=== PATIENT | male | born 1985 | race Caucasian/White ===

== ENCOUNTER 2024-05-31 20:18 | Emergency (ER) | payer MEDICAID, SELFPAY ==
[2024-05-31] VITALS (8 sets, daily range): BP systolic 108–162; BP diastolic 64–105; PULSE 73–98; RESP 16; TEMP 37.3; O2SAT 89–95
--- NOTE | 2024-05-31 20:44 | ED.GENADUL_ITS ---
Discharge Plan Disposition Patient Disposition: Home Condition: Stable Discharge Details Clinical Impression: Nausea & vomiting, Alcohol abuse Primary Care Provider: None,None ED Provider: Edouard Ervin Home Meds and New Rx's Prescriptions: New ondansetron 4 mg tablet,disintegrating 4 mg PO Q8H PRN (Reason: nausea and vomiting) Qty: 30 0RF Discharge Instructions Additional Instructions: Follow-up with your primary care provider within 1 to 2 weeks Return limit alcohol to at most 2 drinks per day If you feel more ill or have new symptoms such as high fevers or persistent vomiting despite the medication prescribed return to the emergency department HPI General Mode of arrival: ambulatory . Date/Time Provider Initiated Documentation: 05/31/24 20:25 . Limitations to Documentation: no limitations . Information obtained by: patient . History of Present Illness 39 year old M presents to the emergency department with the chief complaint of n/v, described as moderate, Patient started experiencing this hour(s) (1) and it has been constant. No relieving factors improve symptom(s), No exacerbating factors reported . Patient notes denies chest pain and shortness of breath. Patient did receive the following treatments prior to arrival, none Related Data Home Medications ?Medication ?Instructions ?Recorded ?Confirmed ondansetron 4 mg disintegrating 4 mg PO Q8H PRN nausea and 05/31/24 tablet vomiting #30 tabs Previous Rx's ?Medication ?Instructions ?Recorded ondansetron 4 mg disintegrating 4 mg PO Q8H PRN nausea and 05/31/24 tablet vomiting #30 tabs Allergies Allergy/AdvReac Type Severity Reaction Status Date / Time No Known Allergies Allergy Unverified 05/31/24 21:05 General Stated Complaint: Nausea/Vomit/Diar SIDRA: 3 Review of Systems All systems reviewed & are unremarkable except as noted in HPI and below Constitutional Constitutional: Denies chills, Denies fever(s) and Denies weakness Cardiovascular Cardiovascular: Denies chest pain and Denies dyspnea Respiratory Respiratory: Denies cough and Denies dyspnea Gastrointestinal Gastrointestinal: Denies abdominal pain and Reports vomiting Musculoskeletal Musculoskeletal: Denies joint swelling Neurologic Neurologic: Denies weakness Exam Const General: no acute distress Orientation: alert HENMT Head: normal to inspection Ears: external ears normal General nose exam: external nose normal Mouth: moist mucous membranes Eyes General: appearance normal, both eyes and all related structures Neck Neck: normal visual inspection Resp Effort & Inspection: normal respiratory effort and able to speak in complete sentences Cardio Rate: regular rate GI Palpation: soft and nontender Skin General skin exam: no rashes or lesions noted Neuro General: patient alert and patient oriented x3 Extrem General: normal to inspection Psych Mental Status: mental status grossly normal Course Vital Signs Vital signs: Vital Signs Temperature 37.3 C 05/31/24 20:22 Pulse 98 H 05/31/24 20:22 Respiratory Rate 16 05/31/24 20:22 Blood Pressure 162/105 H 05/31/24 20:22 Pulse Oximetry 95 05/31/24 20:22 Temperature 37.3 C 05/31/24 20:22 Pulse 98 H 05/31/24 20:22 Respiratory Rate 16 05/31/24 20:22 Blood Pressure 162/105 H 05/31/24 20:22 Pulse Oximetry 95 05/31/24 20:22 Pain Level 0 05/31/24 20:22 Comment 2nd BP taken 05/31/24 20:22 Medical Decision Making 39-year-old male who denies any chronic medical problems, does state he drinks alcohol daily comes in stating that he recently just moved into a new house and states a and drink Water and started vomiting. He denies any abdominal pain, chest pain, shortness of breath. He denies any drug use. He is currently conscious and alert x 4. He does have a smell of alcohol but is clinically sober. He has no motor or sensation deficits on exam, soft nontender abdomen. Stable vital signs. Suspect this could be food or water related illness or possibly from alcohol abuse. he denies si/hi. Will check a CBC and CMP and treat symptoms with fluids and Zofran and reassess. Labs unremarkable other than LFTs elevated to 300s but he does state he drinks alcohol daily suspect is from this. He is tolerating p.o. and still clinically sober, he is stable for discharge and will follow-up with his PCP and return precautions given. Has no abdominal pain or tenderness currently. Differential Diagnosis Differential Diagnosis: Food illness, electrolyte abnormality Lab Data Lab results reviewed: Yes I reviewed the patient's lab results. Quality:SDOH Health Related Social Needs: No Data to Display PFSH All Active Problems (Updated 05/31/24 @ 21:29 by Edouard Ervin MD) Alcohol abuse (Chronic) Nausea & vomiting (Acute) Social History Smoking/Tobacco Use Status: Current every day Tobacco Type: smokeless tobacco Smoking risk assessment performed?: Yes Alcohol Intake: current Alcohol Intake frequency: 3 or more drinks per day Substance use type: does not use Do you feel safe at home: Yes Do you feel safe in your relationship?: Yes
[2024-05-31] MEDS: Ondansetron 4 MG/2 ML VIAL IVP (20:50)
[2024-05-31 21:03] LABS: Abs Immature Grans 0.01 10^3/uL (0.0-0.06); Absolute Basophil Count 0.05 10^3/uL (0.0-0.2); Absolute Eosinophil Count 0.08 10^3/uL (0.0-0.7); Absolute Lymphocyte Count 1.71 10^3/uL (1.2-3.4); Absolute Monocyte Count 0.58 10^3/uL (0.1-0.8); Absolute Neutrophil Count 2.22 10^3/uL (1.2-6.7); Basophils % 1.1 %; Eosinophils % 1.7 %; HCT 41.1 % (40.0-50.0); HGB 13.6 g/dL (13.5-17.5); Immature Grans % 0.2 %; Lymphocytes % 36.8 %; MCH 34.2 pg (27.0-33.0); MCHC 33.1 % (32.0-36.0); MCV 103 fL (80-95); MPV 8.6 fL (8.0-11.0); Monocytes % 12.5 %; Neutrophils % 47.7 %; Platelet Count 195 10^3/uL (130-400); RBC 3.98 10^6/uL (4.36-5.78); RDW 13.5 % (11.8-14.1); RDW-SD 52.8 fL; WBC 4.65 10^3/uL (4.4-10.8)
[2024-05-31 21:18] LABS: ALT 233 U/L (16-63); AST 310 U/L (15-37); Albumin 4.3 g/dL (3.4-5.0); Alkaline Phosphatase 46 U/L (46-116); Anion Gap 9.7 mmol/L (3-11); BUN 7 mg/dL (7-18); Bilirubin, Total 0.37 mg/dL (0.2-1.0); CO2 32.3 mmol/L (21.0-32.0); CREATININE 0.9 mg/dL (0.70-1.30); Calcium 8.4 mg/dL (8.5-10.1); Chloride 102 mmol/L (98-107); Estimated GFR 110.73 (mL/min/1.73m2); Glucose 90 mg/dL (74-106); Potassium 4.1 mmol/L (3.5-5.1); Sodium 144 mmol/L (136-145); Total Protein 7.9 g/dL (6.4-8.2)
== END 2024-05-31 21:44 | disposition home or self-care (01) ==
LOC: ER 21:59
PROVIDERS: Emergency Provider Emergency Medicine
DX: R11.2 Nausea with vomiting, unspecified (principal); F10.10 Alcohol abuse, uncomplicated
CPT/HCPCS: 80053; 96374; 99284; 85025; 99283; J2405

== ENCOUNTER 2024-11-23 09:15 | Inpatient (IN) | payer MEDICAID, SELFPAY ==
[2024-11-23] VITALS (32 sets, daily range): BP systolic 127–174; BP diastolic 63–122; PULSE 67–107; RESP 12–36; TEMP 36.6–37.1; O2SAT 91–100
--- NOTE | 2024-11-23 09:48 | ED.GENADUL_ITS ---
Discharge Plan Discharge Details Chief Complaint: Abd Prob Admit Date/Time: 11/23/24 13:15 Admit Provider: Israel Kong Attending Provider: Israel Kong Primary Care Provider: Unknown,Unknown ED Provider: Jenise Carlos General Mode of arrival: ambulatory . Date/Time Provider Initiated Documentation: 11/23/24 09:21 . Limitations to Documentation: no limitations . Information obtained by: patient, RN notes reviewed and old records reviewed . HPI Narrative: 39-year-old male presents to the ER with a chief complaint of left upper quadrant abdominal pain which radiates around to the back. He reports started yesterday while at work. Associated with nausea vomiting. He reports he does have a history of pancreatitis but is unsure where he was diagnosed with this. He denies any diarrhea denies any fever or chills. No history of abdominal surgeries. He does endorse alcohol. Denies any drugs. He is currently curled up in a ball. Does appear uncomfortable. Related Data Home Medications ?Medication ?Instructions ?Recorded ?Confirmed buspirone 10 mg tablet 10 mg PO TID 11/17/24 11/23/24 clonidine HCl 0.1 mg tablet 0.1 mg PO QHS PRN 11/17/24 11/23/24 diazepam 10 mg tablet (Valium) 10 mg PO ONCE PRN premedication #1 11/17/24 11/17/24 tab escitalopram oxalate 20 mg tablet 20 mg PO DAILY 11/17/24 11/23/24 (Lexapro) folic acid 1 mg tablet 1 mg PO DAILY 11/17/24 11/23/24 mecobalamin (vitamin B12) 1,000 1,000 mcg PO DAILY 11/17/24 11/23/24 mcg chewable tablet (B12 Active) mirtazapine 15 mg tablet (Remeron) 7.5 mg PO DAILY 11/17/24 11/23/24 omeprazole 20 mg capsule,delayed 20 mg PO DAILY 11/17/24 11/23/24 release propranolol 10 mg tablet 10 mg PO DAILY PRN 11/17/24 11/23/24 sucralfate 1 gram tablet 1 g PO BID 11/17/24 11/23/24 Previous Rx's ?Medication ?Instructions ?Recorded diazepam 10 mg tablet (Valium) 10 mg PO ONCE PRN premedication #1 11/17/24 tab Allergies Allergy/AdvReac Type Severity Reaction Status Date / Time No Known Allergies Allergy Unverified 11/23/24 09:28 General Stated Complaint: Abd Prob SIDRA: 3 Review of Systems All systems reviewed & are unremarkable except as noted in HPI and below Gastrointestinal Gastrointestinal: Reports abdominal pain, Reports nausea and Reports vomiting Exam Narrative Exam Narrative: Constitutional: Alert and oriented x3. Appears stated age. Thin body habitus. Head: Normocephalic, no trauma. Eyes: Pupils PERRL, Red reflex noted, EOM's intact. Eyelids symmetrical without lesions, discharge, or swelling. ENT: Bilateral TM's WNL, External ear normal to inspection, no mastoid TTP, swelling, or erythema, Nasal turbinates WNL, no nasal discharge. Normal dentition, Posterior pharynx WNL, no exudate. Chest: RRR, Normal S1, S2, distal pulses intact. Resp: Lungs clear to auscultation bilaterally, no wheezes, rales, or rhonchi. Abdomen: Soft, non-distended, generalized tenderness with palpation. No masses. Positive guarding. Musculoskeletal: Normal gait, Moves all 4 extremities without difficulty. Skin: No suspicious rashes or lesions. Capillary refill less than 2 sec. Neurologic: Cranial nerves II-XII intact. Alert and oriented x 3. Motor: No deficits noted. Sensory: Intact bilaterally all 4 extremities. Hematologic/Lymphatic: No ecchymosis, no lymphadenopathy. Course Vital Signs Vital signs: Vital Signs Temperature 36.6 C 11/23/24 09:30 Pulse 100 H 11/23/24 09:30 Respiratory Rate 24 11/23/24 09:30 Blood Pressure 127/74 11/23/24 09:30 Pulse Oximetry 99 11/23/24 09:30 Temperature 36.6 C 11/23/24 09:30 Temperature Source Oral 11/23/24 09:30 Pulse 100 H 11/23/24 09:30 Respiratory Rate 24 11/23/24 09:30 Blood Pressure 127/74 11/23/24 09:30 Pulse Oximetry 99 11/23/24 09:30 Oxygen Delivery Method Room Air 11/23/24 09:30 Oxygen Flow Rate 0 11/23/24 09:30 Pain Level 9 11/23/24 09:30 Medical Decision Making 39-year-old male presents to the ER with a chief complaint of left upper quadrant abdominal pain which radiates around to the back. He reports started yesterday while at work. Associated with nausea vomiting. He reports he does have a history of pancreatitis but is unsure where he was diagnosed with this. He denies any diarrhea denies any fever or chills. No history of abdominal surgeries. He does endorse alcohol. Denies any drugs. He is currently curled up in a ball. Does appear uncomfortable. Workup ordered including CBC CMP lipase urinalysis UDS and ethyl alcohol level. 500 cc normal saline bolus, Zofran and 0.5 of hydromorphone ordered. CBC shows leukocytosis with white blood cell count 19.03, platelets are 42 absolute neutrophils 16.44, sodium potassium within normal limits. However potassium is 5.0 which is on the high side. Glucose 123, magnesium 1.6 AST elevated at 105 ALT 141. Lipase is greater than 3000. Ethyl alcohol 203.6. CT shows findings consistent with acute pancreatitis. Urinalysis is pending at this time. Will reevaluate patient and recommend admission for acute pancreatitis intractable pain and vomiting. 11:00: I did recommend admission with patient. He is still complaining of some pain however he appears more comfortable. He is requesting water able okay for ice chips for p.o. challenge and additional 1.5 of hydromorphone ordered. 500 cc bolus is infusing without difficulty. 1140: Patient is agreeable to admission, hospitalist paged. 1155: Spoke with Dr. Kong who agrees to accept patient for admission for acute pancreatitis. I did discuss patient case in details with him. He will have the patient evaluated here in the emergency department. At this time due to bed capacity patient may be boarding in the emergency department at this time. assistant tennis coach paged, patient declines pain with monomer recovery operator at this time. Informed by community health nurse staff that patient is complaining of recurrence of pain. Hospitalist here in the department for evaluation. At the time of this dictation patient is boarding in the emergency department has been accepted by the hospitalist awaiting bed placement for admission for acute pancreatitis. BODY SHOP TECHNICIAN hydromorphone 0.5 mg every 2 hours as needed for moderate to severe pain was ordered and as needed Zofran order. At the time of this dictation patient hemodynamically stable, heart rate 82 to 96% on room air blood pressure 132/73. Respiration rate 19. This text was generated using [employer]pexation system, please disregard any oddities of phrase or misspellings. Medical Records Medical records reviewed: Yes I reviewed the patient's medical records. Imaging Data Radiologic Study: Imaging: CT Scan Radiologist's impression: CONTRAST MATERIAL: Intravenous: Omnipaque 350 Contrast volume:75 mL Oral: No COMPARISON: No exams were available for comparison FINDINGS: ABDOMEN: Lung Bases: There is mild diffuse thickening of the wall of the distal esophagus which can be seen with esophagitis. Liver: There is diffuse decreased attenuation of the liver consistent with fatty infiltration. No measurable mass. Hepatomegaly. Portal, Superior Mesenteric, and Splenic Veins: Unremarkable. Gallbladder and Biliary Tract: No radiodense calculus or dilation. Pancreas: There is mild heterogeneity and enlargement of the pancreas with inflammatory stranding seen around the pancreas. No focal fluid collection is seen to suggest an abscess. The findings are suspicious for acute pancreatitis. Spleen: Normal. Adrenals: No masses seen. Kidneys: Normal size, contour and axis. There is a 2 mm nonobstructing stone in the lower pole of the right kidney. No masses seen. Abdominal Aorta: Abdominal portion non-dilated. Minimal atherosclerotic calcification. Bowel: There is bowel wall thickening seen in the mid transverse colons orozco ggestive of colitis. This is likely secondary to the adjacent inflammatory process in the upper abdomen. There is no evidence of bowel obstruction. The remainder of the bowel is unremarkable. Appendix is unremarkable. Peritoneal Cavity: There is a small amount of pelvic ascites. No free air. Lymph Nodes: Within normal limits. Bones: Within normal limits for the patient's age. Soft Tissues: Unremarkable. PELVIS: Bladder: Symmetric distention, no gross wall thickening. Reproductive Organs: Unremarkable as visualized. Lymph Nodes: Within normal limits. Bones: Within normal limits for the patient's age. IMPRESSION: 1. Findings consistent with acute pancreatitis. No focal fluid collection is seen to suggest an abscess. 2. No cholelithiasis or biliary ductal dilatation. 3. Small amount of pelvic ascites. 4. Bowel wall thickening in the mid transverse colon suggestive of colitis. This may be secondary to the inflammatory process in the upper abdomen. No evidence of bowel obstruction. 5. Mild diffuse thickening of the wall of the distal esophagus which may represent an infectious or inflammatory esophagitis. 6. Diffuse decreased attenuation of the liver consistent with fatty infiltration. Hepatomegal Lab Data Lab results reviewed: Yes I reviewed the patient's lab results. Labs: Laboratory Tests Range/Units 11/23/24 11/23/24 11/23/24 09:55 09:55 09:55 WBC (4.4-10.8) 10^3/uL 19.03 H RBC (4.36-5.78) 10^6/uL 3.89 L Hgb (13.5-17.5) g/dL 13.7 Hct (40.0-50.0) % 40.0 MCV (80-95) fL 103 H MCH (27.0-33.0) pg 35.2 H MCHC (32.0-36.0) % 34.3 RDW (11.8-14.1) % 13.1 Plt Count (130-400) 10^3/uL 482 H MPV (8.0-11.0) fL 8.4 Immature Gran % % 0.5 Neutrophils % % 86.4 Lymphocytes % % 7.9 Monocytes % % 4.5 Eosinophils % % 0.2 Basophils % % 0.5 Nucleated RBC % (0.0-0.3) % 0.0 Absolute Neutrophils (1.2-6.7) 10^3/uL 16.44 H Absolute Lymphocytes (1.2-3.4) 10^3/uL 1.50 Absolute Monocytes (0.1-0.8) 10^3/uL 0.86 H Absolute Eosinophils (0.0-0.7) 10^3/uL 0.04 Absolute Basophils (0.0-0.2) 10^3/uL 0.10 Sodium (136-145) mmol/L 138 Potassium (3.5-5.1) mmol/L 5.0 Chloride (98-107) mmol/L 98 Carbon Dioxide (21.0-32.0) mmol/L 28.2 Anion Gap (3-11) mmol/L 11.8 H BUN (7-18) mg/dL 11 Creatinine (0.70-1.30) mg/dL 1.1 Est GFR (CKD-EPI 2020) (mL/min/1.73m2) 87.03 Glucose (74-106) mg/dL 123 H Calcium (8.5-10.1) mg/dL 9.5 Magnesium (1.8-2.4) mg/dL 1.6 L Total Bilirubin (0.2-1.0) mg/dL 0.46 AST (15-37) U/L 105 H ALT (16-63) U/L 141 H Alkaline Phosphatase (46-116) U/L 47 Total Protein (6.4-8.2) g/dL 8.2 Albumin (3.4-5.0) g/dL 4.3 Lipase Cancelled > 3000 H Urine Color (Yellow) Urine Clarity (Clear) Urine pH (5-8) Ur Specific [place] (1.005-1.025) Urine Protein (Neg-Trace) mg/dL Urine Ketones (Negative) mg/dL Urine Blood (Negative) Urine Nitrite (Negative) Urine Bilirubin (Negative) Urine Urobilinogen (Up to 0.2) mg/dL Ur Leukocyte Esterase (Negative) Urine RBC (0-2) HPF Urine WBC (0-5) HPF Ur Epithelial Cells (Negative) HPF Urine Crystals (Negative) HPF Urine Bacteria (Negative) HPF Urine Casts (Negative) LPF Urine Mucus (Negative) Ur Culture Indicated? Urine Glucose (Negative) mg/dL Urine Opiates Screen (Negative) Urine Methadone Screen (Negative) Ur Barbiturates Screen (Negative) Ur Tricyclics Screen (Negative) Ur Amphetamines Screen (Negative) U Benzodiazepines Scrn (Negative) Urine Cocaine Screen (Negative) Ur THC Screen (Negative) Ethyl Alcohol Cancelled 203.6 H Range/Units 11/23/24 11:20 WBC (4.4-10.8) 10^3/uL RBC (4.36-5.78) 10^6/uL Hgb (13.5-17.5) g/dL Hct (40.0-50.0) % MCV (80-95) fL MCH (27.0-33.0) pg MCHC (32.0-36.0) % RDW (11.8-14.1) % Plt Count (130-400) 10^3/uL MPV (8.0-11.0) fL Immature Gran % % Neutrophils % % Lymphocytes % % Monocytes % % Eosinophils % % Basophils % % Nucleated RBC % (0.0-0.3) % Absolute Neutrophils (1.2-6.7) 10^3/uL Absolute Lymphocytes (1.2-3.4) 10^3/uL Absolute Monocytes (0.1-0.8) 10^3/uL Absolute Eosinophils (0.0-0.7) 10^3/uL Absolute Basophils (0.0-0.2) 10^3/uL Sodium (136-145) mmol/L Potassium (3.5-5.1) mmol/L Chloride (98-107) mmol/L Carbon Dioxide (21.0-32.0) mmol/L Anion Gap (3-11) mmol/L BUN (7-18) mg/dL Creatinine (0.70-1.30) mg/dL Est GFR (CKD-EPI 2020) (mL/min/1.73m2) Glucose (74-106) mg/dL Calcium (8.5-10.1) mg/dL Magnesium (1.8-2.4) mg/dL Total Bilirubin (0.2-1.0) mg/dL AST (15-37) U/L ALT (16-63) U/L Alkaline Phosphatase (46-116) U/L Total Protein (6.4-8.2) g/dL Albumin (3.4-5.0) g/dL Lipase Urine Color (Yellow) Yellow Urine Clarity (Clear) Clear Urine pH (5-8) 5.5 Ur Specific [place] (1.005-1.025) 1.020 Urine Protein (Neg-Trace) mg/dL 100 H Urine Ketones (Negative) mg/dL 15 H Urine Blood (Negative) Trace-intact H Urine Nitrite (Negative) Negative Urine Bilirubin (Negative) Negative Urine Urobilinogen (Up to 0.2) mg/dL 0.2 Ur Leukocyte Esterase (Negative) Negative Urine RBC (0-2) HPF 0-2 Urine WBC (0-5) HPF Negative Ur Epithelial Cells (Negative) HPF Rare Urine Crystals (Negative) HPF Negative Urine Bacteria (Negative) HPF Negative Urine Casts (Negative) LPF 3-5 Fine Granular Urine Mucus (Negative) Trace Ur Culture Indicated? No Urine Glucose (Negative) mg/dL Negative Urine Opiates Screen (Negative) Positive A Urine Methadone Screen (Negative) Negative Ur Barbiturates Screen (Negative) Negative Ur Tricyclics Screen (Negative) Negative Ur Amphetamines Screen (Negative) Negative U Benzodiazepines Scrn (Negative) Negative Urine Cocaine Screen (Negative) Negative Ur THC Screen (Negative) Negative Ethyl Alcohol Quality:[facility] Health Related Social Needs: No Data to Display [facility] Social History Smoking/Tobacco Use Status: Current every day Tobacco Type: smokeless tobacco Smoking risk assessment performed?: Yes Alcohol Intake: current Alcohol Intake frequency: 3 or more drinks per day Substance use type: does not use Do you feel safe at home: Yes Do you feel safe in your relationship?: Yes PAWSS Have you Been Recently Intoxicated or Drunk Within the Last 30 days?: No Have you Ever Experienced Previous Episodes of Alcohol Withdrawal?: No Have you ever Experienced Withdrawal Seizures?: No Have you ever Experienced Delirium Tremens(DT)s?: No Have you ever undergone Alcohol Rehabilitation Treatment (i.e, inpt ot outpatient treatment programs)?: No Have you ever Experienced Blackouts?: No Have you ever Combined Alcohol with other Downers within the last 90 days?: No Have you ever Combined Alcohol with any other Substance of Abuse during the last 90 days?: No Positive Blood Alcohol level on Presentation? [PCS.BAL]: No Result: 0
[2024-11-23 10:02] LABS: Absolute Eosinophil Count 0.04 10^3/uL (0.0-0.7); Absolute Monocyte Count 0.86 10^3/uL (0.1-0.8); Absolute Neutrophil Count 16.44 10^3/uL (1.2-6.7); Basophils % 0.5 %; Eosinophils % 0.2 %; HGB 13.7 g/dL (13.5-17.5); Immature Grans % 0.5 %; Lymphocytes % 7.9 %; MCH 35.2 pg (27.0-33.0); MCHC 34.3 % (32.0-36.0); MCV 103 fL (80-95); MPV 8.4 fL (8.0-11.0); Monocytes % 4.5 %; Neutrophils % 86.4 %; Platelet Count 482 10^3/uL (130-400); RBC 3.89 10^6/uL (4.36-5.78); RDW 13.1 % (11.8-14.1); WBC 19.03 10^3/uL (4.4-10.8)
[2024-11-23] MEDS: HYDROmorphone 2 MG/ML SYR 0.5 MG IVP ×5 (10:05→22:55)
[2024-11-23] MEDS: Normal Saline 500 ML IV (10:06)
[2024-11-23] MEDS: Ondansetron 4 MG/2 ML VIAL IVP ×2 (10:06→16:56)
[2024-11-23 10:18] LABS: ALT 141 U/L (16-63); AST 105 U/L (15-37); Albumin 4.3 g/dL (3.4-5.0); Alkaline Phosphatase 47 U/L (46-116); Anion Gap 11.8 mmol/L (3-11); BUN 11 mg/dL (7-18); Bilirubin, Total 0.46 mg/dL (0.2-1.0); CO2 28.2 mmol/L (21.0-32.0); CREATININE 1.1 mg/dL (0.70-1.30); Calcium 9.5 mg/dL (8.5-10.1); Chloride 98 mmol/L (98-107); ETHANOL BLOOD 203.6 mg/dL (<10); Estimated GFR 87.03 (mL/min/1.73m2); Glucose 123 mg/dL (74-106); Magnesium 1.6 mg/dL (1.8-2.4); Sodium 138 mmol/L (136-145); Total Protein 8.2 g/dL (6.4-8.2)
[2024-11-23] MEDS: Famotidine 20 MG/2 ML VIAL IVP (10:25)
[2024-11-23] MEDS: Omnipaque 350 MG/ML 100 ML BTL IJ (10:29)
[2024-11-23] MEDS: Normal Saline - Diluent 50 ML VIAL IJ (10:31)
[2024-11-23 10:36] LABS: Lipase > 3000 U/L (<78)
--- NOTE | 2024-11-23 10:39 | DI.CT_ITS ---
Exam(s) CT ABDOMEN PELVIS W EXAM: CT ABDOMEN PELVIS W CLINICAL HISTORY: LUQ abd pain, hx of pancreatitis TECHNIQUE: Imaging Protocol: Axial computed tomography images with coronal and sagittal reformatted images were created and reviewed. CONTRAST MATERIAL: Intravenous: Omnipaque 350 Contrast volume:75 mL Oral: No COMPARISON: No exams were available for comparison FINDINGS: ABDOMEN: Lung Bases: There is mild diffuse thickening of the wall of the distal esophagus which can be seen wi th esophagitis. Liver: There is diffuse decreased attenuation of the liver consistent with fatty infiltration. No me asurable mass. Hepatomegaly. Portal, Superior Mesenteric, and Splenic Veins: Unremarkable. Gallbladder and Biliary Tract: No radiodense calculus or dilation. Pancreas: There is mild heterogeneity and enlargement of the pancreas with inflammatory stranding see n around the pancreas. No focal fluid collection is seen to suggest an abscess. The findings are orozco spicious for acute pancreatitis. Spleen: Normal. Adrenals: No masses seen. Kidneys: Normal size, contour and axis. There is a 2 mm nonobstructing stone in the lower pole of the right kidney. No masses seen. Abdominal Aorta: Abdominal portion non-dilated. Minimal atherosclerotic calcification. Bowel: There is bowel wall thickening seen in the mid transverse colons suggestive of colitis. This is likely secondary to the adjacent inflammatory process in the upper abdomen. There is no evidence of bowel obstruction. The remainder of the bowel is unremarkable. Appendix is unremarkable. Peritoneal Cavity: There is a small amount of pelvic ascites. No free air. Lymph Nodes: Within normal limits. Bones: Within normal limits for the patient's age. Soft Tissues: Unremarkable. PELVIS: Bladder: Symmetric distention, no gross wall thickening. Reproductive Organs: Unremarkable as visualized. Lymph Nodes: Within normal limits. Bones: Within normal limits for the patient's age. IMPRESSION: 1. Findings consistent with acute pancreatitis. No focal fluid collection is seen to suggest an absc ess. 2. No cholelithiasis or biliary ductal dilatation. 3. Small amount of pelvic ascites. 4. Bowel wall thickening in the mid transverse colon suggestive of colitis. This may be secondary to the inflammatory process in the upper abdomen. No evidence of bowel obstruction. 5. Mild diffuse thickening of the wall of the distal esophagus which may represent an infectious or i nflammatory esophagitis. 6. Diffuse decreased attenuation of the liver consistent with fatty infiltration. Hepatomegaly. RADIATION DOSE DELIVERED: 258.94mGy.cm Total DLP DATA REPOSITORY: All CT scans at this facility are submitted to the National Radiology Data Registry (NRDR) Dose Index Registry (DIR) with the [employer] (A[employer]). RADIATION OPTIMIZATION: All CT scans at this facility use at least one of these dose optimization te chniques: automated exposure control; mA and/or kV adjustment per patient size (includes targeted exa ms where dose is matched to clinical indication); or iterative reconstruction.
[2024-11-23 11:25] LABS: Bilirubin Negative (Negative); Blood Trace-intact (Negative); Clarity Clear (Clear); Glucose Negative (Negative); Ketones 15 mg/dL (Negative); Leukocyte Esterase Negative (Negative); Nitrite Negative (Negative); Urobilinogen 0.2 mg/dL (Up to 0.2); pH 5.5 (5-8)
[2024-11-23 11:34] LABS: Bacteria Negative HPF (Negative); C & S Indicated? No; Casts 3-5 Fine Granular LPF (Negative); Crystals Negative HPF (Negative); Epithelial Cells Rare HPF (Negative); Mucus Trace (Negative); RBC 0-2 HPF (0-2); WBC Negative HPF (0-5)
[2024-11-23 11:36] LABS: *AMPHETAMINES SCREEN URINE Negative (Negative); *BARBITURATES SCREEN URINE Negative (Negative); *BENZODIAZEPINES SCREEN URINE Negative (Negative); Cannabinoids THC Negative (Negative); Cocaine Screen,Urine Negative (Negative); METHADONE URINE SCREEN Negative (Negative); OPIATES URINE SCREEN Positive (Negative); Tricyclic Antidepressants Negative (Negative)
[2024-11-23] MEDS: MAGNESIUM SULFATE 1 GM/100 ML BAG IV_INF (13:34)
[2024-11-23] MEDS: Enoxaparin 40 MG/0.4 ML SYR SC (13:34)
[2024-11-23] MEDS: MAGNESIUM SULFATE 8.12 MEQ, MULTIVITAMIN 10 ML, THIAMINE 100 MG, FOLIC ACID 1 MG in Nor... 168.867 MG IV (15:58)
[2024-11-23] MEDS: Normal Saline 1,000 ML 250 ML IV (16:27)
--- NOTE | 2024-11-23 16:56 | W.PM.HP.N ---
Date of service: 11/23/24 Time of Service: 16:56 Assessment and Plan Assessment and plan (1) Pancreatitis: Status: Chronic Assessment and plan: robust hydration will change to LR at 250/hr pain control with dilaudid NPO (2) Leukocytosis: Status: Acute Assessment and plan: Most likely reactive. CT does not show necrotic pancreas but does indicate possible colitis. Will start abx coverage with cipro and flagyl MPRESSION: 1. Findings consistent with acute pancreatitis. No focal fluid collection is seen to suggest an abscess. 2. No cholelithiasis or biliary ductal dilatation. 3. Small amount of pelvic ascites. 4. Bowel wall thickening in the mid transverse colon suggestive of colitis. This may be secondary to the inflammatory process in the upper abdomen. No evidence of bowel obstruction. 5. Mild diffuse thickening of the wall of the distal esophagus which may represent an infectious or inflammatory esophagitis. 6. Diffuse decreased attenuation of the liver consistent with fatty infiltration. Hepatomegaly. (3) Elevated MCV: Status: Acute Assessment and plan: check b12 and folate as well as iron prior to dc (4) Thrombocytosis: Status: Acute Assessment and plan: exact etiology unknown. Possible splenic issues? Outpatient work up at the discretion of PCP (5) Transaminitis: Status: Acute Assessment and plan: Most likely 2/2 etoh use/abuse. Will recheck labs in am and consider hepatitis panel if not improving. This can also be done as an outpatient (6) Proteinuria: Status: Acute Assessment and plan: noted (7) Hematuria: Status: Acute Assessment and plan: Would recommend repeat UA in 4-6 weeks to ensure resolution History of Present Illness History of Present Illness Chief Complaint: GI bleed Narrative: This is a 39-year-old gentleman with a known history of alcohol abuse as well as pancreatitis who presents to the ED with worsening abdominal pain. Workup in the ED included laboratory work as well as imaging was indicative of pancreatitis. Patient was subsequently mated to the hospital service for further evaluation and treatment. Upon my discussion with the patient he states that he has had approximately 3 days of abdominal pain but has continued to use alcohol. Patient states that he has decreased his alcohol intake remarkably but does have a history of DTs. Patient states that the pain is currently about 6 out of 10 but does respond to narcotics. Patient will be admitted with IV pain control, IV fluids, banana bag, and benzodiazepine EtOH withdrawal protocol. Review of Systems All systems reviewed & are unremarkable except as noted in HPI and below PFSH All Active Problems (Updated 11/23/24 @ 17:05 by Israel Kong MD) Hematuria (Acute) Proteinuria (Acute) Transaminitis (Acute) Thrombocytosis (Acute) Elevated MCV (Acute) Leukocytosis (Acute) Pancreatitis (Chronic) Social History Smoking/Tobacco Use Status: Current every day Tobacco Type: smokeless tobacco Smoking risk assessment performed?: Yes Alcohol Intake: current Alcohol Intake frequency: 3 or more drinks per day Drug use: Current Sobriety Substance use type: does not use Do you feel safe at home: Yes Do you feel safe in your relationship?: Yes Meds Allergies and Home Medications Allergies Allergy/AdvReac Type Severity Reaction Status Date / Time No Known Allergies Allergy Unverified 11/23/24 09:28 Home Medications ?Medication ?Instructions ?Recorded ?Confirmed ?Type buspirone 10 mg tablet 10 mg PO TID 11/17/24 11/23/24 History clonidine HCl 0.1 mg tablet 0.1 mg PO QHS PRN 11/17/24 11/23/24 History diazepam 10 mg tablet (Valium) 10 mg PO ONCE PRN premedication #1 11/17/24 11/17/24 Rx tab escitalopram oxalate 20 mg tablet 20 mg PO DAILY 11/17/24 11/23/24 History (Lexapro) folic acid 1 mg tablet 1 mg PO DAILY 11/17/24 11/23/24 History mecobalamin (vitamin B12) 1,000 1,000 mcg PO DAILY 11/17/24 11/23/24 History mcg chewable tablet (B12 Active) mirtazapine 15 mg tablet (Remeron) 7.5 mg PO DAILY 11/17/24 11/23/24 History omeprazole 20 mg capsule,delayed 20 mg PO DAILY 11/17/24 11/23/24 History release propranolol 10 mg tablet 10 mg PO DAILY PRN 11/17/24 11/23/24 History sucralfate 1 gram tablet 1 g PO BID 11/17/24 11/23/24 History Exam Narrative Exam Narrative: HEENT: Normocephalic atraumatic mucous membranes moist oropharynx is clear extract motions are intact Neck: No lymphadenopathy no JVD no thyromegaly Lungs: Clear to auscultation with good air exchange Cardiovascular: Regular rate and rhythm no murmur rubs or gallops Abdomen: Tenderness to palpation in the right upper quadrant Extremities: No sinus clubbing or edema bilaterally Neurologic: Cranial nerves II through XII intact as tested reflexes upper lower extremity normal as tested Psych: He is alert but in mild to moderate distress due to pain Results Labs 11/23/24 09:55 11/23/24 09:55 Labs: Laboratory Results - last 24 hr 11/23/24 11/23/24 11/23/24 09:55 09:55 09:55 WBC 19.03 H RBC 3.89 L Hgb 13.7 Hct 40.0 MCV 103 H MCH 35.2 H MCHC 34.3 RDW 13.1 Plt Count 482 H MPV 8.4 Immature Gran % 0.5 Neutrophils % 86.4 Lymphocytes % 7.9 Monocytes % 4.5 Eosinophils % 0.2 Basophils % 0.5 Nucleated RBC % 0.0 Absolute Neutrophils 16.44 H Absolute Lymphocytes 1.50 Absolute Monocytes 0.86 H Absolute Eosinophils 0.04 Absolute Basophils 0.10 Sodium 138 Potassium 5.0 Chloride 98 Carbon Dioxide 28.2 Anion Gap 11.8 H BUN 11 Creatinine 1.1 Est GFR (CKD-EPI 2020) 87.03 Glucose 123 H Calcium 9.5 Magnesium 1.6 L Total Bilirubin 0.46 AST 105 H ALT 141 H Alkaline Phosphatase 47 Total Protein 8.2 Albumin 4.3 Lipase Cancelled > 3000 H Urine Color Urine Clarity Urine pH Ur Specific [place] Urine Protein Urine Ketones Urine Blood Urine Nitrite Urine Bilirubin Urine Urobilinogen Ur Leukocyte Esterase Urine RBC Urine WBC Ur Epithelial Cells Urine Crystals Urine Bacteria Urine Casts Urine Mucus Ur Culture Indicated? Urine Glucose Urine Opiates Screen Urine Methadone Screen Ur Barbiturates Screen Ur Tricyclics Screen Ur Amphetamines Screen U Benzodiazepines Scrn Urine Cocaine Screen Ur THC Screen Ethyl Alcohol Cancelled 203.6 H 11/23/24 11:20 WBC RBC Hgb Hct MCV MCH MCHC RDW Plt Count MPV Immature Gran % Neutrophils % Lymphocytes % Monocytes % Eosinophils % Basophils % Nucleated RBC % Absolute Neutrophils Absolute Lymphocytes Absolute Monocytes Absolute Eosinophils Absolute Basophils Sodium Potassium Chloride Carbon Dioxide Anion Gap BUN Creatinine Est GFR (CKD-EPI 2020) Glucose Calcium Magnesium Total Bilirubin AST ALT Alkaline Phosphatase Total Protein Albumin Lipase Urine Color Yellow Urine Clarity Clear Urine pH 5.5 Ur Specific [place] 1.020 Urine Protein 100 H Urine Ketones 15 H Urine Blood Trace-intact H Urine Nitrite Negative Urine Bilirubin Negative Urine Urobilinogen 0.2 Ur Leukocyte Esterase Negative Urine RBC 0-2 Urine WBC Negative Ur Epithelial Cells Rare Urine Crystals Negative Urine Bacteria Negative Urine Casts 3-5 Fine Granular Urine Mucus Trace Ur Culture Indicated? No Urine Glucose Negative Urine Opiates Screen Positive A Urine Methadone Screen Negative Ur Barbiturates Screen Negative Ur Tricyclics Screen Negative Ur Amphetamines Screen Negative U Benzodiazepines Scrn Negative Urine Cocaine Screen Negative Ur THC Screen Negative Ethyl Alcohol Last Vital Signs Temp 36.6 C 11/23/24 09:30 Pulse 70 11/23/24 16:40 Resp 16 11/23/24 16:40 BP 159/86 H 11/23/24 16:31 Pulse Ox 94 11/23/24 16:40 PAWSS Have you Been Recently Intoxicated or Drunk Within the Last 30 days?: No Have you Ever Experienced Previous Episodes of Alcohol Withdrawal?: No Have you ever Experienced Withdrawal Seizures?: No Have you ever Experienced Delirium Tremens(DT)s?: No Have you ever undergone Alcohol Rehabilitation Treatment (i.e, inpt ot outpatient treatment programs)?: No Have you ever Experienced Blackouts?: No Have you ever Combined Alcohol with other Downers within the last 90 days?: No Have you ever Combined Alcohol with any other Substance of Abuse during the last 90 days?: No Positive Blood Alcohol level on Presentation? [PCS.BAL]: No Result: 0 Time Spent Time spent with Patient: 55-74 minutes Time was spent: preparing to see the patient(eg.review tests), obtaining and/or reviewing separately otained hiistory, ordering medications,tests, procedures, referring, communicating with other health day care attendant, indepentently interpreting results, counseling the patient and care coordination
[2024-11-23] MEDS: LORazepam 2 MG/ML VIAL IVP (16:57)
[2024-11-23 17:22] LABS: Lipase > 3000 U/L (<78)
--- NOTE | 2024-11-23 17:51 | W.PC.ACHO ---
Registration Status: Primary Language: Preferred Language: ED Information & Data Chief Complaint Abd Prob 11/23/24 09:48 Triage Note pt with recent diagnosis of 11/23/24 09:30 pancreatitis presents with day history of vomitting and upper abdominal pain Most Recent Vital Signs Temperature 37.1 C 11/23/24 17:23 Temperature Source Oral 11/23/24 09:30 Pulse 74 11/23/24 17:23 Pulse Rhythm Regular 11/23/24 17:23 Pulse 70 11/23/24 16:40 Respiratory Rate 19 11/23/24 17:23 Respiratory Effort Normal, Non-Labored 11/23/24 17:23 Respiratory Depth Normal 11/23/24 17:23 Respiratory Pattern Normal 11/23/24 17:23 Blood Pressure 140/83 11/23/24 17:23 Blood Pressure Mean 112 11/23/24 16:31 Pulse Oximetry 95 11/23/24 17:23 Oxygen Delivery Method Room Air 11/23/24 17:23 Oxygen Flow Rate 0 11/23/24 17:23 Pain Level 8 11/23/24 15:58 Allergies No Known Allergies Allergy (Unverified 11/23/24 09:28) Precautions Isolation Standard precaution 11/23/24 09:32 Active Medications Generic Name Dose Route Start Last Admin Trade Name Freq PRN Reason Stop Dose Admin Enoxaparin Sodium 40 mg 11/23/24 14:00 11/23/24 13:34 Enoxaparin 40 Mg/0.4 Ml Syr SC 40 mg Q24H RAYSA Administration Hydromorphone HCl 0.5 mg 11/23/24 13:40 11/23/24 15:58 Hydromorphone 2 Mg/Ml Syr IVP 0.5 mg Q2H PRN PRN Administration Sodium Chloride 1,000 mls @ 250 mls/hr 11/23/24 13:15 11/23/24 16:27 Saline 1000ml Bag IV 250 mls/hr INFUSION RAYSA Administration Magnesium Sulfate 8.12 meq/ 1,013.2 mls @ 168.867 mls/hr 11/23/24 13:18 11/23/24 15:58 Multivitamins 10 ml/ Thiamine IV 11/23/24 19:17 168.867 mls/hr HCl 100 mg/ Folic Acid 1 mg/ INFUSION ONE Administration Sodium Chloride Lorazepam 0 mg 11/23/24 13:19 11/23/24 16:57 Lorazepam 2 Mg/Ml Vial IVP 3 mg DIRECTED PRN Administration IV IV Catheter Type [Left Saline Lock Antecubital] IV Catheter Type [Right Saline Lock Antecubital] IV Catheter Gauge [Left 18 Antecubital] IV Catheter Gauge [Right 18 Antecubital] Diet Orders Category Date Time Status Nothing Per Oral [DIET] Nutrition 11/23/24 Dinner Active Diagnostics 11/23/24 11/23/24 11/23/24 Range/Units 11:20 09:55 09:55 WBC (4.4-10.8) 10^3/uL RBC (4.36-5.78) 10^6/uL Hgb (13.5-17.5) g/dL Hct (40.0-50.0) % MCV (80-95) fL MCH (27.0-33.0) pg MCHC (32.0-36.0) % RDW (11.8-14.1) % Plt Count (130-400) 10^3/uL MPV (8.0-11.0) fL Immature Gran % % Neutrophils % % Lymphocytes % % Monocytes % % Eosinophils % % Basophils % % Nucleated RBC % (0.0-0.3) % Absolute Neutrophils (1.2-6.7) 10^3/uL Absolute Lymphocytes (1.2-3.4) 10^3/uL Absolute Monocytes (0.1-0.8) 10^3/uL Absolute Eosinophils (0.0-0.7) 10^3/uL Absolute Basophils (0.0-0.2) 10^3/uL Sodium (136-145) mmol/L Potassium (3.5-5.1) mmol/L Chloride (98-107) mmol/L Carbon Dioxide (21.0-32.0) mmol/L Anion Gap (3-11) mmol/L BUN (7-18) mg/dL Creatinine (0.70-1.30) mg/dL Est GFR (CKD-EPI 2020) (mL/min/1.73m2) Glucose (74-106) mg/dL Calcium (8.5-10.1) mg/dL Magnesium (1.8-2.4) mg/dL Total Bilirubin (0.2-1.0) mg/dL AST (15-37) U/L ALT (16-63) U/L Alkaline Phosphatase (46-116) U/L Total Protein (6.4-8.2) g/dL Albumin (3.4-5.0) g/dL Lipase > 3000 H Urine Color Yellow (Yellow) Urine Clarity Clear (Clear) Urine pH 5.5 (5-8) Ur Specific [place] 1.020 (1.005-1.025) Urine Protein 100 H (Neg-Trace) mg/dL Urine Ketones 15 H (Negative) mg/dL Urine Blood Trace-intact H (Negative) Urine Nitrite Negative (Negative) Urine Bilirubin Negative (Negative) Urine Urobilinogen 0.2 (Up to 0.2) mg/dL Ur Leukocyte Esterase Negative (Negative) Urine RBC 0-2 (0-2) HPF Urine WBC Negative (0-5) HPF Ur Epithelial Cells Rare (Negative) HPF Urine Crystals Negative (Negative) HPF Urine Bacteria Negative (Negative) HPF Urine Casts 3-5 Fine Granular (Negative) LPF Urine Mucus Trace (Negative) Ur Culture Indicated? No Urine Glucose Negative (Negative) mg/dL Urine Opiates Screen Positive A (Negative) Urine Methadone Screen Negative (Negative) Ur Barbiturates Screen Negative (Negative) Ur Tricyclics Screen Negative (Negative) Ur Amphetamines Screen Negative (Negative) U Benzodiazepines Scrn Negative (Negative) Urine Cocaine Screen Negative (Negative) Ur THC Screen Negative (Negative) Ethyl Alcohol 203.6 H Cancelled 11/23/24 11/23/24 Range/Units 09:55 09:55 WBC 19.03 H (4.4-10.8) 10^3/uL RBC 3.89 L (4.36-5.78) 10^6/uL Hgb 13.7 (13.5-17.5) g/dL Hct 40.0 (40.0-50.0) % MCV 103 H (80-95) fL MCH 35.2 H (27.0-33.0) pg MCHC 34.3 (32.0-36.0) % RDW 13.1 (11.8-14.1) % Plt Count 482 H (130-400) 10^3/uL MPV 8.4 (8.0-11.0) fL Immature Gran % 0.5 % Neutrophils % 86.4 % Lymphocytes % 7.9 % Monocytes % 4.5 % Eosinophils % 0.2 % Basophils % 0.5 % Nucleated RBC % 0.0 (0.0-0.3) % Absolute Neutrophils 16.44 H (1.2-6.7) 10^3/uL Absolute Lymphocytes 1.50 (1.2-3.4) 10^3/uL Absolute Monocytes 0.86 H (0.1-0.8) 10^3/uL Absolute Eosinophils 0.04 (0.0-0.7) 10^3/uL Absolute Basophils 0.10 (0.0-0.2) 10^3/uL Sodium 138 (136-145) mmol/L Potassium 5.0 (3.5-5.1) mmol/L Chloride 98 (98-107) mmol/L Carbon Dioxide 28.2 (21.0-32.0) mmol/L Anion Gap 11.8 H (3-11) mmol/L BUN 11 (7-18) mg/dL Creatinine 1.1 (0.70-1.30) mg/dL Est GFR (CKD-EPI 2020) 87.03 (mL/min/1.73m2) Glucose 123 H (74-106) mg/dL Calcium 9.5 (8.5-10.1) mg/dL Magnesium 1.6 L (1.8-2.4) mg/dL Total Bilirubin 0.46 (0.2-1.0) mg/dL AST 105 H (15-37) U/L ALT 141 H (16-63) U/L Alkaline Phosphatase 47 (46-116) U/L Total Protein 8.2 (6.4-8.2) g/dL Albumin 4.3 (3.4-5.0) g/dL Lipase > 3000 H Cancelled Urine Color (Yellow) Urine Clarity (Clear) Urine pH (5-8) Ur Specific [place] (1.005-1.025) Urine Protein (Neg-Trace) mg/dL Urine Ketones (Negative) mg/dL Urine Blood (Negative) Urine Nitrite (Negative) Urine Bilirubin (Negative) Urine Urobilinogen (Up to 0.2) mg/dL Ur Leukocyte Esterase (Negative) Urine RBC (0-2) HPF Urine WBC (0-5) HPF Ur Epithelial Cells (Negative) HPF Urine Crystals (Negative) HPF Urine Bacteria (Negative) HPF Urine Casts (Negative) LPF Urine Mucus (Negative) Ur Culture Indicated? Urine Glucose (Negative) mg/dL Urine Opiates Screen (Negative) Urine Methadone Screen (Negative) Ur Barbiturates Screen (Negative) Ur Tricyclics Screen (Negative) Ur Amphetamines Screen (Negative) U Benzodiazepines Scrn (Negative) Urine Cocaine Screen (Negative) Ur THC Screen (Negative) Ethyl Alcohol Intake and Output - 24 Hour Total 11/23/24 09:15 thru 11/23/24 17:23 Intake Total 500 Balance 500 Weight 52.163 kg Intake: IV 500 Falls Risk Assessment History of Falls No History 11/23/24 17:23 Contributing Factors Impairments,Medications 11/23/24 17:23 Ambulatory Aids Independent 11/23/24 17:23 Tubes/Lines With any additional score 11/23/24 17:23 Gait Evaluation W/no contributing factors 11/23/24 17:23 Cognition No cognitive impairment 11/23/24 17:23 Fall Total Score 36 11/23/24 17:23 Level of Risk Moderate Risk 11/23/24 17:23 Problems (Last Reviewed 11/23/24 @ 09:49 by Jenise Carlos NP) Hematuria (Acute) Proteinuria (Acute) Transaminitis (Acute) Thrombocytosis (Acute) Elevated MCV (Acute) Leukocytosis (Acute) Pancreatitis (Chronic) v v v v v v v v v Sending and/or Receiving Nurses: Please use comment section below to note any information pertinent to the patient hand-off not included above. Information / Comments: Report first called at 14:29. Report received from: CASEY Sanchez RN elevator constructor electric back.
[2024-11-23] MEDS: Lactated Ringers 1,000 ML 250 ML IV (18:35)
[2024-11-23] MEDS: CIPROFLOXACIN 400 MG/200 ML BAG 200 MG IVPB (19:40)
[2024-11-23] MEDS: Normal Saline Flush 10 ML SYR IVP (22:58)
[2024-11-24] VITALS: BP 144/85; PULSE 77; RESP 18; TEMP 37.2; O2SAT 96
[2024-11-24] MEDS: LORazepam 1 MG TAB PO/SL ×2 (00:23→05:14)
[2024-11-24] MEDS: Lactated Ringers 1,000 ML 250 ML IV ×3 (00:37→14:52)
[2024-11-24] MEDS: HYDROmorphone 2 MG/ML SYR 0.5 MG IVP ×3 (02:00→14:52)
[2024-11-24 03:19] VITALS: BP 145/87; PULSE 89; RESP 20; TEMP 37.9; O2SAT 95
[2024-11-24 06:21] VITALS: TEMP 37.4
[2024-11-24 07:23] LABS: Abs Immature Grans 0.05 10^3/uL (0.0-0.06); Absolute Basophil Count 0.06 10^3/uL (0.0-0.2); Absolute Lymphocyte Count 0.64 10^3/uL (1.2-3.4); Absolute Monocyte Count 0.97 10^3/uL (0.1-0.8); Absolute Neutrophil Count 12.27 10^3/uL (1.2-6.7); Basophils % 0.4 %; Eosinophils % 0.1 %; HCT 32.9 % (40.0-50.0); Immature Grans % 0.4 %; Lymphocytes % 4.6 %; MCH 34.6 pg (27.0-33.0); MCHC 33.7 % (32.0-36.0); MCV 103 fL (80-95); MPV 8.7 fL (8.0-11.0); Monocytes % 6.9 %; Neutrophils % 87.6 %; Platelet Count 313 10^3/uL (130-400); RBC 3.21 10^6/uL (4.36-5.78); RDW 13.1 % (11.8-14.1); RDW-SD 49.7 fL; WBC 14.01 10^3/uL (4.4-10.8)
[2024-11-24 07:29] LABS: Absolute Eosinophil Count 0.01 10^3/uL (0.0-0.7)
[2024-11-24 07:38] VITALS: BP 132/70; PULSE 90; RESP 20; TEMP 37.6; O2SAT 93
[2024-11-24 07:45] LABS: HGB 11.1 g/dL (13.5-17.5)
[2024-11-24 07:51] LABS: Magnesium 1.9 mg/dL (1.8-2.4); PHOSPHORUS < 2.0 mg/dL (2.6-4.7)
[2024-11-24] MEDS: Normal Saline Flush 10 ML SYR IVP ×3 (07:59→20:23)
[2024-11-24] MEDS: CIPROFLOXACIN 400 MG/200 ML BAG 200 MG IVPB ×2 (07:59→20:22)
[2024-11-24 08:16] LABS: ALT 81 U/L (16-63); AST 49 U/L (15-37); Albumin 3.1 g/dL (3.4-5.0); Alkaline Phosphatase 36 U/L (46-116); Anion Gap 7.2 mmol/L (3-11); BUN 3 mg/dL (7-18); Bilirubin, Total 0.64 mg/dL (0.2-1.0); CO2 28.8 mmol/L (21.0-32.0); CREATININE 0.6 mg/dL (0.70-1.30); Calcium 8.1 mg/dL (8.5-10.1); Chloride 101 mmol/L (98-107); Estimated GFR 125.15 (mL/min/1.73m2); Glucose 88 mg/dL (74-106); Potassium 3.7 mmol/L (3.5-5.1); Sodium 137 mmol/L (136-145); Total Protein 6.2 g/dL (6.4-8.2)
[2024-11-24 08:28] LABS: Lipase 1082 U/L (<78)
--- NOTE | 2024-11-24 08:56 | PDOC.CMIN ---
Date of service: 11/24/24 Time of Service: 08:56 Care Management Initial Assmt Initial Assessment Reason for Hospitalization: pancreatitis, abdominal pain Functional Status/Living Situation Patient Presentation: Liam presented to the ED yesterday with worsening abdominal pain over the course of 3 days. Liam has a hx of ETOH abuse, has been drinking less, but still drinking. Liam was sitting up on the side of the bed when CM met with him. He was pleasant. He stated that he is feeling lousy and still having a lot of pain. He denied any CM needs, but was appreciative of the visit. Liam will be assigned to Edouard Martinez DO at [facility] on discharge. Liam stated he does want to establish with a PCP. Liam will also need a return to work note on discharge. Town of Residence: [facility] Resides with: Alone Significant Other/Family: Local (brother, Sam, is his closest contact. 16yo son lives in [place], he speaks with him often) Employment Status: Employed (fulltime at [employer] on second shift) Instrumental Activities of Daily Living (ADLs): Independent Medications Medication Management: No Issues/Barriers identified Advance Directives Advance Directives: Do you have an Advance Directive: N 04/22/24 10:05 AD On File at [facility]: N 04/22/24 10:05 Date Asked 11/23/24 11/23/24 09:22 AD Date Reviewed COLST On File at [facility] COLST Date Scanned Code Status Resuscitation Status Full Code Insurance Coverage/Financial Issues Insurance: Medicaid Care Team Visit Care Team Role Provider Type Unknown Unknown Primary Care Provider STAFF PHYSICIAN Mikayla Kilgore Other Providers AIRLINE OPERATIONS AGENT Arielle Ahuja Other Providers AIRLINE OPERATIONS AGENT Suzy Turner Other Providers AIRLINE OPERATIONS AGENT Maria Teresa Freedman RN Other Providers AIRLINE OPERATIONS AGENT Jenise Carlos NP Emergency Provider NURSE PRACTITIONER Israel Kong MD Admit Provider [facility] STAFF PHYSICIAN Attending Provider Other: T-doc is Juan at [facility]. Liam wants to establish Discharge Potential Discharge Needs: PCP F/U Appt (will need to establish with a PCP. Aruna Martinez at [facility]) Anticipated Barriers to Discharge: None Identified Patient/Family Education Needs: Review discharge instructions, discuss Ask Me Three Transportation: Private vehicle Plan: Anticipate that Liam will be discharged with no new services. Liam will be set up with an appointment at [facility], he currently has no PCP and is looking to establish. Liam will transport in a private vehicle and continue per his plan of care. Liam will require a return to work letter on day of discharge. Social Determinants of Health Screening Social Determinants of Health last assessed: 11/24/24 Will the Patient Participate in the Screening?: Yes Do you worry about having a steady place to live?: no Problems where you live: no known problems In the past 12 months, have you had to go without electric, gas, oil or water in your home?: no Have you or anyone in your house had to go without enough food to eat?: no Has lack of transportation kept you from medical appointments or from doing things needed for daily living?: no Has anyone in your life made you feel unsafe or unsupported?: no How hard is it for you to pay for the very basics like food, housing, medical care, and heating? Would you say it is:: Not hard at all Do you want help finding or keeping work or a job?: I do not need or want help If for any reason you need help with day-to-day activities such as bathing, preparing meals, shopping, managing finances, etc., do you get the help you need?: I get all the help I need How often do you feel lonely or isolated from those around you?: Never Do you speak a language other than Indonesian at home?: No Does the patient want assistance with any of the above?: No PFSH All Active Problems (Updated 11/23/24 @ 17:05 by Israel Kong MD) Hematuria (Acute) Proteinuria (Acute) Transaminitis (Acute) Thrombocytosis (Acute) Elevated MCV (Acute) Leukocytosis (Acute) Pancreatitis (Chronic) Social History Smoking/Tobacco Use Status: Current every day Tobacco Type: smokeless tobacco Smoking risk assessment performed?: Yes Alcohol Intake: current Alcohol Intake frequency: 3 or more drinks per day Drug use: Current Sobriety Substance use type: does not use Housing: apartment Do you feel safe at home: Yes Do you feel safe in your relationship?: Yes Readmission Within the Past 30 Days Yes or No: No
[2024-11-24 11:49] VITALS: BP 119/78; PULSE 81; RESP 16; TEMP 37; O2SAT 95
[2024-11-24] MEDS: Enoxaparin 40 MG/0.4 ML SYR SC (14:53)
[2024-11-24 15:17] VITALS: BP 127/85; PULSE 82; RESP 16; TEMP 36.7; O2SAT 95
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
[2024-11-24] MEDS: MAGNESIUM SULFATE 8.12 MEQ, MULTIVITAMIN 10 ML, THIAMINE 100 MG, FOLIC ACID 1 MG in Nor... 168.867 MG IV (17:55)
[2024-11-25] VITALS (7 sets, daily range): BP systolic 109–153; BP diastolic 72–98; PULSE 73–104; RESP 16–20; TEMP 36.5–37.3; O2SAT 95–97
[2024-11-25] MEDS: Lactated Ringers 1,000 ML 250 ML IV ×4 (00:18→12:52)
[2024-11-25] MEDS: HYDROmorphone 2 MG/ML SYR 0.5 MG IVP ×4 (00:28→21:00)
[2024-11-25 06:59] LABS: Abs Immature Grans 0.04 10^3/uL (0.0-0.06); Absolute Basophil Count 0.05 10^3/uL (0.0-0.2); Absolute Eosinophil Count 0.09 10^3/uL (0.0-0.7); Absolute Lymphocyte Count 1.18 10^3/uL (1.2-3.4); Absolute Monocyte Count 1.02 10^3/uL (0.1-0.8); Basophils % 0.4 %; Eosinophils % 0.8 %; HCT 30.7 % (40.0-50.0); HGB 10.5 g/dL (13.5-17.5); Immature Grans % 0.4 %; Lymphocytes % 10.5 %; MCH 34.9 pg (27.0-33.0); MCHC 34.2 % (32.0-36.0); MCV 102 fL (80-95); Neutrophils % 78.9 %; Platelet Count 275 10^3/uL (130-400); RBC 3.01 10^6/uL (4.36-5.78); RDW 12.9 % (11.8-14.1); RDW-SD 48.4 fL; WBC 11.28 10^3/uL (4.4-10.8)
[2024-11-25 07:17] LABS: Iron 18 ug/dL (65-175); Total Iron Binding Capacity 218 ug/dL (250-450); Transferrin Sat 8 % (20-55)
[2024-11-25 07:24] LABS: Magnesium 1.9 mg/dL (1.8-2.4); PHOSPHORUS < 2.0 mg/dL (2.6-4.7)
[2024-11-25 07:55] LABS: ALT 65 U/L (16-63); AST 54 U/L (15-37); Alkaline Phosphatase 45 U/L (46-116); Anion Gap 7.9 mmol/L (3-11); BUN 1 mg/dL (7-18); Bilirubin, Total 0.47 mg/dL (0.2-1.0); CO2 30.1 mmol/L (21.0-32.0); CREATININE 0.6 mg/dL (0.70-1.30); Calcium 8.2 mg/dL (8.5-10.1); Chloride 104 mmol/L (98-107); Estimated GFR 125.15 (mL/min/1.73m2); Folate 15.5 ng/mL (8.6-20.0); Glucose 93 mg/dL (74-106); Potassium 3.3 mmol/L (3.5-5.1); Sodium 142 mmol/L (136-145); Total Protein 6.2 g/dL (6.4-8.2); Vitamin B12 954 pg/mL (193-986)
[2024-11-25 07:57] LABS: Lipase 434 U/L (<78)
[2024-11-25] MEDS: CIPROFLOXACIN 400 MG/200 ML BAG 200 MG IVPB (08:04)
[2024-11-25] MEDS: Normal Saline Flush 10 ML SYR IVP ×3 (08:04→21:01)
--- NOTE | 2024-11-25 08:20 | PDOC.CMPRO ---
Date of service: 11/25/24 Time of Service: 08:20 Care Management Progress Note Progress Note Text Progress Note Text: Liam was sitting up in the bed, visiting with his girlfriend, when CM met with him today. Liam stated that he is having less pain, and is eager to eat. He was advanced from NPO to clear liquids at lunch, and tolerated that well. He is hopeful that his diet will be advanced even further at dinner and discharge tomorrow. Liam asked for a letter for work today. A letter was faxed to Irene at [phone] stating that Liam is currently hospitalized. Discharge Potential Discharge Needs: PCP F/U Appt Anticipated Barriers to Discharge: None Identified Patient/Family Education Needs: Review discharge instructions, discuss Ask Me Three Transportation: Private vehicle Plan: Anticipate that Liam will be discharged home with no new services. Liam will be set up with an appointment at [facility], he currently has no PCP and is looking to establish. Liam will transport in a private vehicle and continue per his plan of care. Liam will require a return to work letter on day of discharge. Social Determinants of Health Screening Social Determinants of Health last assessed: 11/25/24 Will the Patient Participate in the Screening?: Yes Do you worry about having a steady place to live?: no Problems where you live: no known problems In the past 12 months, have you had to go without electric, gas, oil or water in your home?: no Have you or anyone in your house had to go without enough food to eat?: no Has lack of transportation kept you from medical appointments or from doing things needed for daily living?: no Has anyone in your life made you feel unsafe or unsupported?: no How hard is it for you to pay for the very basics like food, housing, medical care, and heating? Would you say it is:: Not hard at all Do you want help finding or keeping work or a job?: I do not need or want help If for any reason you need help with day-to-day activities such as bathing, preparing meals, shopping, managing finances, etc., do you get the help you need?: I get all the help I need How often do you feel lonely or isolated from those around you?: Never Do you speak a language other than Lithuanian at home?: No Does the patient want assistance with any of the above?: No
[2024-11-25] MEDS: IRON SUCROSE COMPLEX 100 MG in Normal Saline 100 ML 400 MG IVPB (13:00)
[2024-11-25] MEDS: Enoxaparin 40 MG/0.4 ML SYR SC (13:29)
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
[2024-11-26] MEDS: HYDROmorphone 2 MG/ML SYR 0.5 MG IVP (03:56)
[2024-11-26 04:09] VITALS: BP 162/98; PULSE 100; RESP 20; TEMP 37.1; O2SAT 98
[2024-11-26 06:36] LABS: Abs Immature Grans 0.05 10^3/uL (0.0-0.06); Absolute Basophil Count 0.06 10^3/uL (0.0-0.2); Absolute Eosinophil Count 0.24 10^3/uL (0.0-0.7); Absolute Lymphocyte Count 0.97 10^3/uL (1.2-3.4); Absolute Monocyte Count 1.02 10^3/uL (0.1-0.8); Absolute Neutrophil Count 7.14 10^3/uL (1.2-6.7); Basophils % 0.6 %; Eosinophils % 2.5 %; HCT 31.2 % (40.0-50.0); HGB 10.6 g/dL (13.5-17.5); Immature Grans % 0.5 %; Lymphocytes % 10.2 %; MCH 35.3 pg (27.0-33.0); MCV 104 fL (80-95); Monocytes % 10.8 %; Neutrophils % 75.4 %; Platelet Count 237 10^3/uL (130-400); RDW 12.8 % (11.8-14.1); RDW-SD 48.8 fL; WBC 9.48 10^3/uL (4.4-10.8)
[2024-11-26 07:08] LABS: ALT 79 U/L (16-63); AST 105 U/L (15-37); Albumin 3.1 g/dL (3.4-5.0); Alkaline Phosphatase 65 U/L (46-116); BUN 4 mg/dL (7-18); Bilirubin, Total 0.65 mg/dL (0.2-1.0); CREATININE 0.7 mg/dL (0.70-1.30); Calcium 8.6 mg/dL (8.5-10.1); Chloride 99 mmol/L (98-107); Estimated GFR 119.46 (mL/min/1.73m2); Glucose 104 mg/dL (74-106); Lipase 236 U/L (<78); Potassium 3.6 mmol/L (3.5-5.1); Sodium 137 mmol/L (136-145); Total Protein 6.4 g/dL (6.4-8.2)
[2024-11-26 07:57] VITALS: BP 133/82; PULSE 85; RESP 16; TEMP 38; O2SAT 96
--- NOTE | 2024-11-26 08:10 | DSE_ITS ---
Date of service: 11/26/24 Time of Service: 08:10 DS: Diagnosis Discharge Diagnosis (1) Pancreatitis: Status: Chronic (2) Leukocytosis: Status: Acute (3) Elevated MCV: Status: Acute (4) Thrombocytosis: Status: Acute (5) Transaminitis: Status: Acute (6) Proteinuria: Status: Acute (7) Hematuria: Status: Acute Discharge Plan Disposition Patient Disposition: Home Condition: Improving Discharge Details Reason For Visit: Adb pain ongoing 2 days Admit Date/Time: 11/23/24 13:15 Admit Provider: Israel Kong Attending Provider: Israel Kong Primary Care Provider: Unknown,Unknown Hospital Course Hospital Course: 39 yo M with history of alcohol use disorder and alcoholic pancreatitis presented with abdominal pain. ED evaluation showed elevated lipase and transaminitis. CT was c/w pancreatitis without signs of biliary disease, and also showed possible colitis. He improved with IV hydration. He was covered for possible colitis with ciprofloxicin and metronidazole, though he did not have diarrhea. These were not continued at discharge as clinically he never seemed to have colitis. By 11/25 he was tolerating a diet and his pain, WBC, and lipase were improving. His thromboytosis resolved. He was on alcohol withdrawal protocol but he did not have significant withdrawal. His transaminitis persisted and should be followed as an outpatient including a possible fibrosis assessment. His iron was low and B12/folate were normal. He got a dose of IV iron. He had an elevated MCV related to his alcohol use. mild protein was noted and should have outpatient follow up with protein/creatinine in urine. Hematuria was noted on dipstick but not on microscopic u/a, so this diagnosis was removed. Treatment for alcohol use disorder was reviewed. He has used naltrexone and has some at home and plans to restart. He has a lot of cravings and also has baclofen as an adjuvant therapy. He has been engaged in therapy and AA, but needs to establish locally as he moved recently from [place]. He needs a new PCP and should be seen in 1-2 weeks. Home Meds and New Rx's Prescriptions: New naltrexone 50 mg tablet 50 mg PO DAILY Qty: 30 3RF Continued escitalopram oxalate [Lexapro] 20 mg tablet 20 mg PO DAILY buspirone 10 mg tablet 10 mg PO TID omeprazole 20 mg capsule,delayed release(DR/EC) 20 mg PO DAILY folic acid 1 mg tablet 1 mg PO DAILY mecobalamin (vitamin B12) [B12 Active] 1,000 mcg tablet,chewable 1,000 mcg PO DAILY sucralfate 1 gram tablet 1 g PO BID mirtazapine [Remeron] 15 mg tablet 7.5 mg PO DAILY propranolol 10 mg tablet 10 mg PO DAILY PRN clonidine HCl 0.1 mg tablet 0.1 mg PO QHS PRN Discontinued diazepam [Valium] 10 mg tablet 10 mg PO ONCE PRN (Reason: premedication) Qty: 1 0RF Rx Instructions: Take 1 hour prior to procedure. Must have a cdl b driver Discharge Instructions Instructions: Acute pancreatitis, Alcohol Use Disorder (DC) Additional Instructions: Restart the naltrexone for cravings. The baclofen also helps with this. Re-establish with AA locally and get a sponsor. The recovery center is also a resource. Follow up with your new PCP. Remember to eat a low fat diet to avoid pancreatitis flairs Stand Alone Forms: Nursing Discharge Form Referrals: Edouard Martinez [ [facility] STAFF PHYSICIAN] - 12/03/24 1:30 pm Activity:: Activity as Tolerated Equipment/Supplies:: No Equipment Needed Diet:: Low Fat Discharge Orders Discharge Orders: Discharge Order (Routine); Ordered 11/26/24 Ordered By: Jean Patton Discharge Data Discharge Date/Time-TO BE ENTERED AT DEPARTURE: 11/26/24 09:06 DS: Summary Time Spent with Patient providing and/or coordinating discharge services: Greater than 30 minutes Status at Discharge Functional status at discharge: independent ambulation Overall status at discharge: patient is progressing back to baseline Mental Status: mental status grossly normal Speech and Movement: speech and movement normal Mood: congruent mood Affect: normal affect Quality:SDOH Health Related Social Needs: No Data to Display Exam Narrative Exam Narrative: GEN: Alert and oriented, NAD HEENT: no icterus, MMM Lungs: good air exchange, clear, normal effort Cardiovascular: Regular rate and rhythm no murmur rubs or gallops Abdomen: +BS, soft, slight epigastric tenderness, no guarding/rebound Extremities: No sinus clubbing or edema bilaterally Psych Mental Status: mental status grossly normal Speech and Movement: speech and movement normal Mood: congruent mood Affect: normal affect DS: Data Vitals/I&O Vitals and I&O: Vital Signs Temperature 38.0 C H 11/26/24 07:57 Temperature Source Temporal Artery Scan 11/26/24 07:57 Pulse 85 11/26/24 07:57 Pulse Rhythm Regular 11/23/24 17:23 Pulse 77 11/23/24 17:01 Respiratory Rate 16 11/26/24 07:57 Respiratory Effort Normal, Non-Labored 11/23/24 17:23 Respiratory Depth Normal 11/23/24 17:23 Respiratory Pattern Normal 11/23/24 17:23 Blood Pressure 133/82 11/26/24 07:57 Blood Pressure Mean 127 11/23/24 17:00 Pulse Oximetry 96 11/26/24 07:57 Oxygen Delivery Method Room Air 11/26/24 07:57 Oxygen Flow Rate 0 11/26/24 07:57 Pain Level 0 11/26/24 04:09 Intake & Output 11/25/24 11/25/24 11/26/24 11:59 23:59 11:59 Intake Total 3713.2 / 5618.2 1905 / 5618.2 300 / 300 Output Total 2000 / 3600 1600 / 3600 500 / 500 Balance 1713.2 / 2018.2 305 / 2018.2 -200 / -200 Intake: IV 3413.2 / 5318.2 1905 / 5318.2 Oral 300 / 300 300 / 300 Output: Urine 2000 / 3600 1600 / 3600 500 / 500 Other: Urine Color Yellow Yellow Yellow Urine Appearance Clear Clear Clear Urine Odor Normal Normal Data Completed and Pending Labs on day of discharge: Labs from last 24 hours 11/26/24 06:15 WBC 9.48 RBC 3.00 L Hgb 10.6 L Hct 31.2 L MCV 104 H MCH 35.3 H MCHC 34.0 RDW 12.8 Plt Count 237 MPV 9.0 Immature Gran % 0.5 Neutrophils % 75.4 Lymphocytes % 10.2 Monocytes % 10.8 Eosinophils % 2.5 Basophils % 0.6 Nucleated RBC % 0.0 Absolute Neutrophils 7.14 H Absolute Lymphocytes 0.97 L Absolute Monocytes 1.02 H Absolute Eosinophils 0.24 Absolute Basophils 0.06 Sodium 137 Potassium 3.6 Chloride 99 Carbon Dioxide 31.0 Anion Gap 7.0 BUN 4 L Creatinine 0.7 Est GFR (CKD-EPI 2020) 119.46 Glucose 104 Calcium 8.6 Total Bilirubin 0.65 AST 105 H ALT 79 H Alkaline Phosphatase 65 Total Protein 6.4 Albumin 3.1 L Lipase 236 H PFSH All Active Problems (Updated 11/23/24 @ 17:05 by Israel Kong MD) Hematuria (Acute) Proteinuria (Acute) Transaminitis (Acute) Thrombocytosis (Acute) Elevated MCV (Acute) Leukocytosis (Acute) Pancreatitis (Chronic) Social History Smoking/Tobacco Use Status: Current every day Tobacco Type: smokeless tobacco Smoking risk assessment performed?: Yes Alcohol Intake: current Alcohol Intake frequency: 3 or more drinks per day Drug use: Current Sobriety Substance use type: does not use Housing: apartment Do you feel safe at home: Yes Do you feel safe in your relationship?: Yes Time Spent with Patient Time Spent with Patient: <45 minutes Time was spent: preparing to see the patient(eg.review tests), obtaining and/or reviewing separately otained hiistory, ordering medications,tests, procedures, referring, communicating with other health pharmacist critical care, indepentently interpreting results, counseling the patient and care coordination
[2024-11-26] MEDS: Normal Saline Flush 10 ML SYR IVP (08:27)
--- NOTE | 2024-11-26 08:33 | CMDISCH_ITS ---
Date of service: 11/26/24 Time of Service: 08:33 LACE Index Scoring Tool Questions: Length of Stay (in days): 3 Was the patient admitted via the E.D.?: Yes E.D. Visits: 2 Answers: Total Score: 8 Risk of Readmission: Low Risk Care Management Discharge Plan Reason for Hospitalization: acute pancreatitis Discharge Plan: Liam is discharged home today with no new services or orders. He will f/u with his new PCP at [facility], and continue per his plan of care. He will transport home in a private vehicle. Patient/Family Education Needs: Review of discharge instructions, activity, limitations and discuss ask me 3. SDOH Health Related Social Needs: No Data to Display
== END 2024-11-26 09:06 | disposition home or self-care (01) | DRG 440 ==
LOC: ER 12:24 → EDHOLD 13:37 → MS 17:06
PROVIDERS: Family Medicine; Admitting Provider Hospitalist; Emergency Provider Registered Nurse Emergency; Visit Provider Hospitalist
DX: K85.20 Alcohol induced acute pancreatitis without necrosis or infection (principal); D72.829 Elevated white blood cell count, unspecified; D75.839 Thrombocytosis, unspecified; R74.01 Elevation of levels of liver transaminase levels; F17.290 Nicotine dependence, other tobacco product, uncomplicated; Z79.899 Other long term (current) drug therapy; R80.8 Other proteinuria; E61.1 Iron deficiency; F10.10 Alcohol abuse, uncomplicated
CPT/HCPCS: 00123; 36415; 80053; 80307; 83690; 96361; 96365; 96366; 96372; 96375; 96376; 99285; J1650; 74177; 80320; 81003; 81015; 82607; 82746; 83540; 83550; 83735; 84100; 85025; 99223; 99232; 99239; J0744; J1171; J1756; J2060; J2405; J3411; J3475; J3490

== ENCOUNTER 2025-04-18 22:12 | Emergency (ER) | payer SELFPAY ==
[2025-04-18 22:14] VITALS: BP 122/78; PULSE 85; RESP 18; TEMP 37.2; O2SAT 99
[2025-04-18 22:21] VITALS: BP 122/78; PULSE 85; RESP 18; TEMP 37.2; O2SAT 99
--- NOTE | 2025-04-18 22:30 | DI.RAD_ITS ---
Exam(s) XR ELBOW RT COMPLETE EXAM: XR ELBOW RT COMPLETE CLINICAL HISTORY: swelling and pain. TECHNIQUE: 2D digital imaging was performed. Three views. COMPARISON: No exams were available for comparison FINDINGS: BONES: No acute fracture is present. No bony destructive lesion is seen. Minimal spur at the olecranon. JOINTS: The elbow is normally aligned. No joint effusion is seen. The joint spaces are maintained. SOFT TISSUE: Prominent soft tissue swelling posteriorly and medially. Gauze overlying the olecranon. Ovoid area calcification in the posterior soft tissues overlying the olecranon. The findings could represent gouty tophus versus calcification related to prior trauma.. IMPRESSION: Significant soft tissue swelling as well as calcific focus overlying the olecranon. The preliminary [facility] report was reviewed. DATA REPOSITORY: RADIATION DOSE DELIVERED:
[2025-04-18 22:50] LABS: Abs Immature Grans 0.07 10^3/uL (0.0-0.06); Absolute Basophil Count 0.05 10^3/uL (0.0-0.2); Absolute Eosinophil Count 0.08 10^3/uL (0.0-0.7); Absolute Lymphocyte Count 1.13 10^3/uL (1.2-3.4); Basophils % 0.4 %; Eosinophils % 0.6 %; HCT 36.2 % (40.0-50.0); HGB 11.8 g/dL (13.5-17.5); Immature Grans % 0.5 %; Lymphocytes % 8.4 %; MCH 33.9 pg (27.0-33.0); MCHC 32.6 % (32.0-36.0); MCV 104 fL (80-95); MPV 9.1 fL (8.0-11.0); Monocytes % 9.3 %; Neutrophils % 80.8 %; Platelet Count 320 10^3/uL (130-400); RBC 3.48 10^6/uL (4.36-5.78); RDW 12.8 % (11.8-14.1); WBC 13.49 10^3/uL (4.4-10.8)
[2025-04-18 22:52] LABS: ESR 63 mm/hr (0-15)
[2025-04-18 22:53] LABS: Absolute Monocyte Count 1.25 10^3/uL (0.1-0.8)
[2025-04-18 23:07] LABS: ALT 52 U/L (16-63); AST 42 U/L (15-37); Albumin 3.5 g/dL (3.4-5.0); Alkaline Phosphatase 71 U/L (46-116); Anion Gap 9.1 mmol/L (3-11); BUN 16 mg/dL (7-18); Bilirubin, Total 0.8 mg/dL (0.2-1.0); C-Reactive Protein 5.66 mg/dL (<or=0.5); CO2 30.9 mmol/L (21.0-32.0); CREATININE 0.9 mg/dL (0.70-1.30); Calcium 9.4 mg/dL (8.5-10.1); Chloride 97 mmol/L (98-107); Estimated GFR 110.04 (mL/min/1.73m2); Glucose 128 mg/dL (74-106); Potassium 3.6 mmol/L (3.5-5.1); Sodium 137 mmol/L (136-145); Total Protein 9.2 g/dL (6.4-8.2)
[2025-04-18] MEDS: CLINDAMYCIN 900 MG/50 ML BAG 50 MG IVPB (23:07)
[2025-04-18] MEDS: diazePAM 5 MG TAB PO (23:08)
--- NOTE | 2025-04-18 23:31 | W.ED.GENAD ---
Discharge Plan Disposition Patient Disposition: Home Condition: Stable Discharge Details Clinical Impression: Septic bursitis Primary Care Provider: Edouard Martinez ED Provider: Radha Dale Home Meds and New Rx's Prescriptions: New clindamycin HCl [Cleocin HCl] 150 mg capsule 150 mg PO TID Qty: 90 0RF Continued escitalopram oxalate [Lexapro] 20 mg tablet 20 mg PO DAILY buspirone 10 mg tablet 10 mg PO TID omeprazole 20 mg capsule,delayed release(DR/EC) 20 mg PO DAILY folic acid 1 mg tablet 1 mg PO DAILY mecobalamin (vitamin B12) [B12 Active] 1,000 mcg tablet,chewable 1,000 mcg PO DAILY sucralfate 1 gram tablet 1 g PO BID mirtazapine [Remeron] 15 mg tablet 7.5 mg PO DAILY propranolol 10 mg tablet 10 mg PO DAILY PRN clonidine HCl 0.1 mg tablet 0.1 mg PO QHS PRN naltrexone 50 mg tablet 50 mg PO DAILY Qty: 30 3RF Discharge Instructions Instructions: Bursitis (DC) Additional Instructions: Take antibiotic as prescribed Wick removed in 48 to 72 hours, please follow-up with surgery/ recheck at this time Wash with soap and water try not to remove wick when you remove the dressing Apply warm compresses and rest the elbow refrain from bending is much as possible wear sling Return immediately spreading redness, fever, worsening pain Referrals: Edouard Martinez [Primary Care Provider, Medicine] Asad Arreola MD [ [facility] STAFF PHYSICIAN, Surgery] Discharge Data Discharge Date/Time-TO BE ENTERED AT DEPARTURE: 04/19/25 00:43 HPI General Date/Time Provider Initiated Documentation: 04/18/25 22:16. HPI Narrative: 40-year-old male with right elbow abscess. Pain began 2 weeks ago at work, escalating in sensitivity. No trauma or fever. Managed pain with ibuprofen. No illicit drug use. Alcohol consumption every other day, last drink yesterday. No withdrawal history but reports feeling 'shaky.' Related Data Home Medications ?Medication ?Instructions ?Recorded ?Confirmed buspirone 10 mg tablet 10 mg PO TID 11/17/24 04/20/25 clonidine HCl 0.1 mg tablet 0.1 mg PO QHS PRN 11/17/24 04/20/25 escitalopram oxalate 20 mg tablet 20 mg PO DAILY 11/17/24 04/20/25 (Lexapro) folic acid 1 mg tablet 1 mg PO DAILY 11/17/24 04/20/25 mecobalamin (vitamin B12) 1,000 1,000 mcg PO DAILY 11/17/24 04/20/25 mcg chewable tablet (B12 Active) mirtazapine 15 mg tablet (Remeron) 7.5 mg PO DAILY 11/17/24 04/20/25 omeprazole 20 mg capsule,delayed 20 mg PO DAILY 11/17/24 04/20/25 release propranolol 10 mg tablet 10 mg PO DAILY PRN 11/17/24 04/20/25 sucralfate 1 gram tablet 1 g PO BID 11/17/24 04/20/25 naltrexone 50 mg tablet 50 mg PO DAILY #30 tabs 11/26/24 04/20/25 clindamycin HCl 150 mg capsule 150 mg PO TID #90 caps 04/18/25 04/20/25 (Cleocin HCl) Previous Rx's ?Medication ?Instructions ?Recorded naltrexone 50 mg tablet 50 mg PO DAILY #30 tabs 11/26/24 clindamycin HCl 150 mg capsule 150 mg PO TID #90 caps 04/18/25 (Cleocin HCl) Allergies Allergy/AdvReac Type Severity Reaction Status Date / Time No Known Allergies Allergy Unverified 04/20/25 09:40 General Stated Complaint: Cellulitis SIDRA: 3 Exam Narrative Exam Narrative: General Appearance: Alert, oriented, slightly tremulous. Vital signs: Within normal limits. HEENT: Within normal limits. Respiratory: Within normal limits. Extremities: Right elbow erythema, inflamed bursa with surrounding cellulitis. Able to range elbow, neurovascularly intact. Skin: No lymphangitis or crepitus. Neurological: Normal. Course Vital Signs Vital signs: Vital Signs Temperature 37.2 C 04/18/25 22:14 Pulse 85 04/18/25 22:14 Respiratory Rate 18 04/18/25 22:14 Blood Pressure 122/78 04/18/25 22:14 Pulse Oximetry 99 04/18/25 22:14 Temperature 37.2 C 04/18/25 22:21 Temperature Source Oral 04/18/25 22:21 Pulse 85 04/18/25 22:21 Respiratory Rate 18 04/18/25 22:21 Blood Pressure 122/78 04/18/25 22:21 Blood Pressure Position Sitting 04/18/25 22:21 Pulse Oximetry 99 04/18/25 22:21 Oxygen Delivery Method Room Air 04/18/25 22:21 Oxygen Flow Rate 0 04/18/25 22:21 Pain Level 5 04/18/25 23:08 Lab/Test Results Lab/Test Results: Laboratory Tests Range/Units 04/18/25 22:40 WBC (4.4-10.8) 10^3/uL 13.49 H RBC (4.36-5.78) 10^6/uL 3.48 L Hgb (13.5-17.5) g/dL 11.8 L Hct (40.0-50.0) % 36.2 L MCV (80-95) fL 104 H MCH (27.0-33.0) pg 33.9 H MCHC (32.0-36.0) % 32.6 RDW (11.8-14.1) % 12.8 Plt Count (130-400) 10^3/uL 320 MPV (8.0-11.0) fL 9.1 Immature Gran % % 0.5 Neutrophils % % 80.8 Lymphocytes % % 8.4 Monocytes % % 9.3 Eosinophils % % 0.6 Basophils % % 0.4 Nucleated RBC % (0.0-0.3) % 0.0 Absolute Neutrophils (1.2-6.7) 10^3/uL 10.90 H Absolute Lymphocytes (1.2-3.4) 10^3/uL 1.13 L Absolute Monocytes (0.1-0.8) 10^3/uL 1.25 H Absolute Eosinophils (0.0-0.7) 10^3/uL 0.08 Absolute Basophils (0.0-0.2) 10^3/uL 0.05 ESR (0-15) mm/hr 63 H Sodium (136-145) mmol/L 137 Potassium (3.5-5.1) mmol/L 3.6 Chloride (98-107) mmol/L 97 L Carbon Dioxide (21.0-32.0) mmol/L 30.9 Anion Gap (3-11) mmol/L 9.1 BUN (7-18) mg/dL 16 Creatinine (0.70-1.30) mg/dL 0.9 Est GFR (CKD-EPI 2021) (mL/min/1.73m2) 110.04 Glucose (74-106) mg/dL 128 H Calcium (8.5-10.1) mg/dL 9.4 Total Bilirubin (0.2-1.0) mg/dL 0.8 AST (15-37) U/L 42 H ALT (16-63) U/L 52 Alkaline Phosphatase (46-116) U/L 71 C-Reactive Protein (<or=0.5) mg/dL 5.66 H Total Protein (6.4-8.2) g/dL 9.2 H Albumin (3.4-5.0) g/dL 3.5 Procedure Abscess Drainage Procedure Description Note: Injected 5 cm? lidocaine with epinephrine into right olecranon bursa. Expressed 20 cm? purulent material, probed, deloculated, irrigated with 100 cm? saline. Placed 1/4 inch wick with pressure dressing. Medical Decision Making Mild leukocytosis at 13,000. Hemoglobin improved to 11.8. CRP and sed rate mildly elevated at 5 and 60. Initial Assessment: 40-year-old male with abscess to right elbow, pain began 2 weeks ago, increased sensitivity today. Erythema, inflamed bursa, surrounding cellulitis. Able to range elbow, neurovascularly intact. Mild leukocytosis at 13,000. Hemoglobin improved to 11.8. CRP and sed rate mildly elevated at 5 and 60. ED Course: - Injected 5 cm? of lidocaine with epinephrine into the right olecranon bursa. - Approximately 20 cm? of purulent material expressed, probed and deloculated, irrigated with 100 cm? of saline. - 1/4 inch wick placed with a pressure dressing. - Patient tolerated procedure without incident. - Initiate clindamycin. - Wound cultures pending. - Provide sling and Gabe wrap. - Reviewed return precautions, patient understood. Final Assessment: Abscess to right elbow with surrounding cellulitis, treated with lidocaine and epinephrine injection, purulent material expressed and irrigated, wick placed. Initiated clindamycin, pending wound cultures. Follow-up in 48 hours for recheck. Clinical Impression: - Right elbow abscess Disposition: - Follow-Up: Surgery recheck in 48 hours. MDM Components Evaluation: - Number of Differential Diagnoses or Management Options: Septic arthritis less likely. - Amount and Complexity of Data Reviewed: Mild leukocytosis at 13,000. Hemoglobin improved to 11.8. CRP and sed rate mildly elevated at 5 and 60. - Risk of Complication and Morbidity or Mortality: Risk of infection and potential complications from abscess and cellulitis. PFSH All Active Problems (Updated 04/19/25 @ 00:03 by MAX PIERCE) Proteinuria (Acute) Transaminitis (Acute) Elevated MCV (Acute) Medical History (Updated 04/19/25 @ 00:03 by MAX PIERCE) Pancreatitis Social History Smoking/Tobacco Use Status: Current every day Tobacco Type: smokeless tobacco Smoking risk assessment performed?: Yes Alcohol Intake: current Alcohol Intake frequency: 3 or more drinks per day Alcohol type: beer Drug use: Rarely Substance use type: marijuana Housing: apartment Do you feel safe at home: Yes Do you feel safe in your relationship?: Yes
[2025-04-19] MEDS: Ketorolac 15 MG/ML VIAL IVP (00:33)
--- NOTE | 2025-04-19 01:20 | DI.VRAD_ITS ---
PROCEDURE INFORMATION: Exam: XR Right Elbow Exam date and time: 04/18/2025 11:30 PM Age: 40 years old Clinical indication: Elbow; Right; Swelling, pain TECHNIQUE: Imaging protocol: Radiologic exam of the right elbow. Views: 3 or more views. COMPARISON: No relevant prior studies available. FINDINGS: Bones/joints: No fracture or dislocation. No joint effusion. Soft tissues: There is soft tissue edema of the posterior distal upper arm and over the olecranon. There is a wick present in the thickened/edematous olecranon soft tissues at the site of today's incision and drainage for infected olecranon bursitis. 2.3 cm cloudlike calcified structure positioned between the wick in the olecranon bone could be a pre-existing foreign body or soft tissue calcification such as a tophi related to gout or chronic bursitis. IMPRESSION: There is soft tissue edema of the posterior distal upper arm and over the olecranon. There is a wick present in the thickened/edematous olecranon soft tissues at the site of today's incision and drainage for infected olecranon bursitis. 2.3 cm cloudlike calcified structure positioned between the wick in the olecranon bone could be a pre-existing foreign body or soft tissue calcification such as a tophi related to gout or chronic bursitis. Dictated and Authenticated by: August Quiroz MD. Orderin Suyapa Garcia MD
--- NOTE | 2025-04-19 11:20 | NUR.NOTE ---
Accessed Pt chart to document diagnosis on the [facility] Paperwork
[2025-04-20 13:54] LABS: Lyme Ab w Rflx to Lyme Confirm Negative (Negative)
[2025-04-22 09:22] LABS: Anaplasma phagocytophilum Negative (Negative); B. miyamotoi PCR Negative (Negative); Babesia divergens/MO-1 Negative (Negative); Babesia duncani Negative (Negative); Babesia microti Negative (Negative); Ehrlichia chaffeensis Negative (Negative); Ehrlichia ewingii/canis Negative (Negative); Ehrlichia muris eauclairensis Negative (Negative)
== END 2025-04-19 00:43 | disposition home or self-care (01) ==
LOC: ER 04-19 00:49
PROVIDERS: Emergency Provider Physician Assistant; PCP Family Medicine
DX: M71.10 Other infective bursitis, unspecified site (principal)
CPT/HCPCS: 99283; 99284; 10061; 96375; 80053; 85652; 87077; 87798; 96365; 73080; 85025; 86140; 86618; 87070; 87205; J0737; J1885

== ENCOUNTER 2025-09-27 05:02 | Emergency (ER) | payer MEDICAID, SELFPAY ==
[2025-09-27 05:05] VITALS: BP 151/85; PULSE 102; RESP 18; TEMP 36.4; O2SAT 97
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
[2025-09-27 07:10] VITALS: BP 129/74; PULSE 87; RESP 14; TEMP 36.6; O2SAT 96
[2025-09-27] MEDS: Tetanus & Diphtheria Tox,ADULT 0.5 ML VIAL IM (07:10)
[2025-09-27 08:15] VITALS: BP 111/75; PULSE 94; RESP 12; O2SAT 97
== END 2025-09-27 08:16 | disposition home or self-care (01) ==
PROVIDERS: Emergency Provider Student in an Organized Health Care Education/Training Program; PCP Family Medicine
DX: H53.451 Other localized visual field defect, right eye; S01.81XA Laceration without foreign body of other part of head, initial encounter; M79.641 Pain in right hand; Y04.0XXA Assault by unarmed brawl or fight, initial encounter; Z23 Encounter for immunization
CPT/HCPCS: 76512; 90471; 90714; 99284; 70450; 70486; 73110; 73130

== ENCOUNTER 2025-10-21 16:14 | Emergency (ER) | payer MEDICAID, SELFPAY ==
--- NOTE | 2025-10-21 16:30 | RT.EKG_ITS ---
APPROVED REPORT Exam: Resting ECG Reason for Exam: heart palpitations, nausea, fatigue Patient Location: E HR:100 bpm ECG Measurements Heart Rate 100 AXIS AK 123 P 86 QRSd 94 QRS 80 QT 365 T 78 QTc 471 Conclusion Sinus tachycardia...rate> 99
[2025-10-21 16:35] VITALS: BP 133/72; PULSE 100; RESP 18; TEMP 36.7; O2SAT 98
--- NOTE | 2025-10-21 17:15 | DI.RAD_ITS ---
Exam(s) XR CHEST 2V PA LATERAL EXAM: XR CHEST 2V PA LATERAL CLINICAL HISTORY: SOB TECHNIQUE: 2D digital imaging was performed of the chest. Two images were obtained. PA and lateral views were obtained. COMPARISON: No exams were available for comparison FINDINGS: MEDIASTINUM: Normal. HEART: Normal. PULMONARY VASCULATURE: Normal. LUNGS: Clear. PLEURAL SPACE: No pleural effusion or pneumothorax. BONE:Within normal limits for the patient's age. OTHER FINDINGS:Normal. IMPRESSION: No acute pulmonary findings. DATA REPOSITORY: RADIATION DOSE DELIVERED:
[2025-10-21 17:35] VITALS: RESP 19
--- NOTE | 2025-10-21 17:35 | W.ED.GENAD ---
Discharge Plan Disposition Patient Disposition: Home Condition: Stable Discharge Details Clinical Impression: URI (upper respiratory infection), Fatty infiltration of liver Primary Care Provider: Edouard Martinez ED Provider: Jenise Carlos Home Meds and New Rx's Prescriptions: No Action buspirone 10 mg tablet 10 mg PO TID propranolol 10 mg tablet 10 mg PO DAILY PRN clonidine HCl 0.1 mg tablet 0.1 mg PO QHS PRN ondansetron 4 mg tablet,disintegrating 4 mg PO Q6H PRN Discharge Instructions Instructions: Metabolic dysfunction-associated steatotic liver disease, Cough, runny nose, and the common cold Additional Instructions: At this time no evidence of pneumonia, pulmonary embolism COVID flu or RSV. No evidence of heart attack. You do have a spot on your liver that needs further evaluation with your primary care provider. Your liver enzymes are also slightly elevated. Follow up with primary care provider in 3-5 days. Return to ED sooner if any worsening or concerns. Please take Ibuprofen with food every 4-6 hours as needed for pain and swelling. You may take wzeu-jwi-[id number] cough and cold medicines as directed. Increase oral fluids, increase vitamin C. Stand Alone Forms: Portal Information Referrals: Edouard Martinez [Primary Care Provider, Medicine] - 5 days Referral Note: ER follow up call for an appointment Clinical Impression: Fatty infiltration of liver; URI (upper respiratory infection) HPI General Mode of arrival: ambulatory. Date/Time Provider Initiated Documentation: 10/21/25 16:42. Limitations to Documentation: no limitations. Information obtained by: patient, RN notes reviewed and old records reviewed. HPI Narrative: 40-year-old male presents to the ER with a chief complaint of 48 hours of URI type symptoms with productive cough, palpitations and fatigue. Patient is a daily smoker. Does endorse alcohol denies any other illicit drugs. He does also report chest discomfort. Denies any diarrhea or vomiting but does endorse some nausea. He reports taking the nausea medication prior to arrival. He has been taking [id number] [place] cold and flu. Related Data Home Medications ?Medication ?Instructions ?Recorded ?Confirmed buspirone 10 mg tablet 10 mg PO TID 11/17/24 10/21/25 clonidine HCl 0.1 mg tablet 0.1 mg PO QHS PRN 01/22/25 12/26/25 propranolol 10 mg tablet 10 mg PO DAILY PRN 11/17/24 10/21/25 ondansetron 4 mg disintegrating 4 mg PO Q6H PRN 10/21/25 10/21/25 tablet Allergies Allergy/AdvReac Type Severity Reaction Status Date / Time No Known Allergies Allergy Unverified 10/21/25 16:38 General Stated Complaint: Palpitatns SIDRA: 3 Review of Systems All systems reviewed & are unremarkable except as noted in HPI and below Constitutional Constitutional: Reports as per HPI, Reports body ache(s) and Reports fatigue ENT Ears, Nose, Mouth, and Throat: Reports as per HPI Cardiovascular Cardiovascular: Reports dyspnea Respiratory Respiratory: Reports change in phlegm color, Reports chest congestion, Reports excessive phlegm production and Reports dyspnea Endocrine Endocrine: Reports fatigue Exam Narrative Exam Narrative: Constitutional: Alert and oriented x3. Appears stated age. Normal body habitus. Head: Normocephalic, no trauma. Eyes: Pupils PERRL, Red reflex noted, EOM's intact. Eyelids symmetrical without lesions, discharge, or swelling. ENT: Bilateral TM's WNL, External ear normal to inspection, no mastoid TTP, swelling, or erythema, Nasal turbinates WNL, no nasal discharge. Normal dentition, Posterior pharynx WNL, no exudate. Chest: RRR, Normal S1, S2, distal pulses intact. Resp: Lungs clear to auscultation bilaterally, no wheezes, rales, or rhonchi. Abdomen: Soft, non-distended, Normoactive bowel sounds all 4 quads. Musculoskeletal: Normal gait, Moves all 4 extremities without difficulty. Skin: No suspicious rashes or lesions. Capillary refill less than 2 sec. Neurologic: Cranial nerves II-XII intact. Alert and oriented x 3. Motor: No deficits noted. Sensory: Intact bilaterally all 4 extremities. Hematologic/Lymphatic: No ecchymosis, no lymphadenopathy. Course Vital Signs Vital signs: Vital Signs Temperature 36.7 C 10/21/25 16:35 Pulse 100 H 10/21/25 16:35 Respiratory Rate 18 10/21/25 16:35 Blood Pressure 133/72 10/21/25 16:35 Pulse Oximetry 98 10/21/25 16:35 Temperature 36.7 C 10/21/25 16:35 Temperature Source Tympanic 10/21/25 16:35 Pulse 100 H 10/21/25 16:35 Respiratory Rate 18 10/21/25 16:35 Blood Pressure 133/72 10/21/25 16:35 Pulse Oximetry 98 10/21/25 16:35 Oxygen Delivery Method Room Air 10/21/25 16:35 Oxygen Flow Rate 0 10/21/25 16:35 Medical Decision Making Chest x-ray ordered, COVID flu RSV, CBC CMP troponin EKG obtained in triage. No old EKG available for review. Please see official report show sinus tachycardia. Dimer 1377, due to palpitations and respiratory symptoms cannot rule out PE, Will order a CT chest PE protocol. CT chest shows no evidence for PE, no pneumonia or pneumothorax, there is some old rib fractures, also focal hyperdense left hepatic lobe lesion. Further evaluation recommended. Also some evidence of fatty liver disease. Patient does endorse alcohol use. No leukocytosis, liver enzymes are slightly elevated to serial negative troponins. Negative for COVID flu RSV. Given instructions for viral URI symptoms and home care. Given instructions for return. Patient discharged, ambulatory from department. This text was generated using [employer] system, please disregard any oddities of phrase or misspellings. Imaging Data Radiologic Study: Imaging: CT Scan Radiologist's impression: IMPRESSION: 1. No pulmonary embolism identified. 2. No active cardiopulmonary disease identified. 3. Hepatic steatosis. 4. Focal hyperdense left hepatic lobe lesion, as described above, may represent focal fatty sparing, but liver neoplasm, either primary or metastatic, cannot be entirely excluded. Further evaluation with liver directed CT or MRI could be obtained on a nonemergent basis. 5. Findings suggest mild circumferential wall thickening of the lower esophagus, could reflect reflux esophagitis. Recommend clinical correlation. 6. Can not exclude healing right posterior 12th rib fracture, which is not completely imaged on this exam. Recommend clinical correlation for focal tenderness. Thank you for allowing us to participate in the care of your patient. Dictated and Authenticated by: Jean Graves MD Lab Data Lab results reviewed: Yes I reviewed the patient's lab results. Labs: Laboratory Tests Range/Units 10/21/25 10/21/25 10/21/25 17:33 17:55 18:56 WBC (4.4-10.8) 10^3/uL 9.76 RBC (4.36-5.78) 10^6/uL 3.82 L Hgb (13.5-17.5) g/dL 12.8 L Hct (40.0-50.0) % 40.1 MCV (80-95) fL 105 H MCH (27.0-33.0) pg 33.5 H MCHC (32.0-36.0) % 31.9 L RDW (11.8-14.1) % 13.2 Plt Count (130-400) 10^3/uL 295 MPV (8.0-11.0) fL 8.9 Immature Gran % % 0.4 Neutrophils % % 79.2 Lymphocytes % % 11.0 Monocytes % % 8.1 Eosinophils % % 0.6 Basophils % % 0.7 Nucleated RBC % (0.0-0.3) % 0.0 Absolute Neutrophils (1.2-6.7) 10^3/uL 7.73 H Absolute Lymphocytes (1.2-3.4) 10^3/uL 1.07 L Absolute Monocytes (0.1-0.8) 10^3/uL 0.79 Absolute Eosinophils (0.0-0.7) 10^3/uL 0.06 Absolute Basophils (0.0-0.2) 10^3/uL 0.07 D-Dimer (<500) ng/mlFEU 1377 H Sodium (136-145) mmol/L 140 Potassium (3.5-5.1) mmol/L 4.3 Chloride (98-107) mmol/L 101 Carbon Dioxide (20.0-31.0) mmol/L 24.9 Anion Gap (3-11) mmol/L 14.1 H BUN (9-23) mg/dL 18 Creatinine (0.73-1.18) mg/dL 0.71 L Est GFR (CKD-EPI 2020) (mL/min/1.73m2) 121.95 Glucose (74-106) mg/dL 79 Calcium (8.3-10.6) mg/dL 9.1 Total Bilirubin (0.2-1.2) mg/dL 0.5 AST (<34) U/L 93 H ALT (10-49) U/L 58 H Alkaline Phosphatase (46-116) U/L 51 Troponin I (<54) ng/L 5 4 Total Protein (5.7-8.2) g/dL 7.6 Albumin (3.2-5.0) g/dL 4.5 COVID-19 Source Nasopharynx SARS-CoV-2 (PCR) (Negative) Negative Influenza Type A (PCR) (Negative) Negative Influenza Type B (PCR) (Negative) Negative RSV (PCR) (Negative) Negative Range/Units 10/21/25 20:41 WBC (4.4-10.8) 10^3/uL RBC (4.36-5.78) 10^6/uL Hgb (13.5-17.5) g/dL Hct (40.0-50.0) % MCV (80-95) fL MCH (27.0-33.0) pg MCHC (32.0-36.0) % RDW (11.8-14.1) % Plt Count (130-400) 10^3/uL MPV (8.0-11.0) fL Immature Gran % % Neutrophils % % Lymphocytes % % Monocytes % % Eosinophils % % Basophils % % Nucleated RBC % (0.0-0.3) % Absolute Neutrophils (1.2-6.7) 10^3/uL Absolute Lymphocytes (1.2-3.4) 10^3/uL Absolute Monocytes (0.1-0.8) 10^3/uL Absolute Eosinophils (0.0-0.7) 10^3/uL Absolute Basophils (0.0-0.2) 10^3/uL D-Dimer (<500) ng/mlFEU Sodium (136-145) mmol/L Potassium (3.5-5.1) mmol/L Chloride (98-107) mmol/L Carbon Dioxide (20.0-31.0) mmol/L Anion Gap (3-11) mmol/L BUN (9-23) mg/dL Creatinine (0.73-1.18) mg/dL Est GFR (CKD-EPI 2020) (mL/min/1.73m2) Glucose (74-106) mg/dL Calcium (8.3-10.6) mg/dL Total Bilirubin (0.2-1.2) mg/dL AST (<34) U/L ALT (10-49) U/L Alkaline Phosphatase (46-116) U/L Troponin I (<54) ng/L Cancelled Total Protein (5.7-8.2) g/dL Albumin (3.2-5.0) g/dL COVID-19 Source SARS-CoV-2 (PCR) (Negative) Influenza Type A (PCR) (Negative) Influenza Type B (PCR) (Negative) RSV (PCR) (Negative) PFSH All Active Problems (Updated 10/21/25 @ 20:38 by Jenise Carlos NP) Fatty infiltration of liver (Acute) URI (upper respiratory infection) (Acute) Visual field defect (Acute) Proteinuria (Acute) Transaminitis (Acute) Elevated MCV (Acute) Medical History Pancreatitis Social History Smoking/Tobacco Use Status: Current every day Tobacco Type: smokeless tobacco Smoking risk assessment performed?: Yes Alcohol Intake: current Alcohol Intake frequency: 3 or more drinks per day Alcohol type: beer Drug use: Rarely Substance use type: marijuana Housing: apartment Do you feel safe at home: Yes Do you feel safe in your relationship?: Yes PAWSS Have you Been Recently Intoxicated or Drunk Within the Last 30 days?: No Have you Ever Experienced Previous Episodes of Alcohol Withdrawal?: No Have you ever Experienced Withdrawal Seizures?: No Have you ever Experienced Delirium Tremens(DT)s?: No Have you ever undergone Alcohol Rehabilitation Treatment (i.e, inpt ot outpatient treatment programs)?: No Have you ever Experienced Blackouts?: No Have you ever Combined Alcohol with other Downers within the last 90 days?: No Have you ever Combined Alcohol with any other Substance of Abuse during the last 90 days?: No Result: 0
[2025-10-21 18:02] LABS: Abs Immature Grans 0.04 10^3/uL (0.0-0.06); HCT 40.1 % (40.0-50.0); HGB 12.8 g/dL (13.5-17.5); Immature Grans % 0.4 %; MCH 33.5 pg (27.0-33.0); MCHC 31.9 % (32.0-36.0); MCV 105 fL (80-95); MPV 8.9 fL (8.0-11.0); Platelet Count 295 10^3/uL (130-400); RBC 3.82 10^6/uL (4.36-5.78); RDW 13.2 % (11.8-14.1); RDW-SD 50.5 fL; WBC 9.76 10^3/uL (4.4-10.8)
[2025-10-21 18:12] LABS: COVID-19 PCR Negative (Negative); RSV PCR Negative (Negative)
[2025-10-21 18:19] LABS: Troponin I 5 ng/L (<54)
[2025-10-21 18:21] LABS: ALT 58 U/L (10-49); AST 93 U/L (<34); Albumin 4.5 g/dL (3.2-5.0); Alkaline Phosphatase 51 U/L (46-116); Anion Gap 14.1 mmol/L (3-11); BUN 18 mg/dL (9-23); Bilirubin, Total 0.5 mg/dL (0.2-1.2); CO2 24.9 mmol/L (20.0-31.0); Calcium 9.1 mg/dL (8.3-10.6); Chloride 101 mmol/L (98-107); Glucose 79 mg/dL (74-106); Potassium 4.3 mmol/L (3.5-5.1); Sodium 140 mmol/L (136-145); Total Protein 7.6 g/dL (5.7-8.2)
[2025-10-21 18:28] LABS: D-Dimer 1377 ng/mlFEU (<500)
--- NOTE | 2025-10-21 18:30 | DI.CT_ITS ---
Exam(s) CT CHEST PE CTA EXAM: CT CHEST PE CTA CLINICAL HISTORY: Elevated Dimer, palpitations. TECHNIQUE: Imaging Protocol: CT angiography of the chest was performed using pulmonary embolus protocol. Multi planar reconstructions were performed. CONTRAST MATERIAL: Intravenous: Omnipaque 350 Contrast volume: 70 cc COMPARISON: No exams were available for comparison FINDINGS: CHEST: PULMONARY ARTERIES: There are no intraluminal filling defects to suggest acute pulmonary emboli. LUNGS: There are no infiltrates nor evidence of pulmonary infarction.. There are no pleural effusions. MEDIASTINUM: There is no hilar nor mediastinal adenopathy. Visualized thyroid unremarkable. CARDIAC: Heart size is upper normal. There is no pericardial effusion.Caliber of the thoracic aorta is within normal limits. No evidence of aortic dissection. There is no significant shift of the interventricular septum. PARTIALLY VISUALIZED UPPERMOST ABDOMEN: Severe hepatic steatosis noted. No splenomegaly nor ascites. No adrenal masses evident. OSSEOUS: No significant osseous lesions.There is a healed fracture of the posterior aspect the left 11th rib. There is a partially included possible fracture of the right 12th rib. IMPRESSION: 1. No evidence of acute pulmonary emboli. No evidence of pulmonary infarction.No pleural effusions. 2. Severe hepatic steatosis. The liver is only partly included in the field of view of this chest study. 3. Healed left 11th rib fracture. The right 12th rib is only partially included in the field of view and appears to have a fracture, possibly healing. This is not completely imaged within the field of view of this study. RADIATION DOSE DELIVERED: 57.23mGy.cm Total DLP DATA REPOSITORY: All CT scans at this facility are submitted to the National Radiology Data Registry (NRDR) Dose Index Registry (DIR) with the [employer] (A[employer]). RADIATION OPTIMIZATION: All CT scans at this facility use at least one of these dose optimization techniques: automated exposure control; mA and/or kV adjustment per patient size (includes targeted exams where dose is matched to clinical indication); or iterative reconstruction.
[2025-10-21 18:56] VITALS: BP 124/62; PULSE 86; PULSE 89; RESP 20; O2SAT 99
[2025-10-21] MEDS: Normal Saline Flush 10 ML SYR IVP (19:10)
[2025-10-21] MEDS: Normal Saline - Diluent 50 ML VIAL IJ (19:10)
[2025-10-21] MEDS: Omnipaque 350 MG/ML 100 ML BTL IJ (19:10)
[2025-10-21 19:17] LABS: Troponin I 4 ng/L (<54)
--- NOTE | 2025-10-21 20:30 | DI.VRAD_ITS ---
PROCEDURE INFORMATION: Exam: CTA Chest With Contrast Exam date and time: 10/21/2025 7:04 PM Age: 40 years old Clinical indication: Other: Elevated dimer, palpitations TECHNIQUE: Imaging protocol: Computed tomographic angiography of the chest with contrast. Exam focused on the arteries. 3D rendering (Not supervised by radiologist): MIP and/or 3D reconstructed images were created by the technologist. Contrast material: OMNIPAQUE 350; Contrast volume: 70 ml; Contrast route: INTRAVENOUS (IV); COMPARISON: CR XR CHEST 2V PA LATERAL 10/21/2025 6:07 PM FINDINGS: Pulmonary arteries: No filling defects within the pulmonary arteries are identified to suggest pulmonary embolism. Aorta: Unremarkable. No aortic aneurysm. No aortic dissection. Lungs: Unremarkable. No consolidation. No masses. Pleural spaces: There is no evidence of pneumothorax. There are no pleural effusions present. Heart: Heart size is normal. There is no pericardial effusion. There is no coronary artery calcification. Esophagus: Findings suggest mild circumferential wall thickening of the lower esophagus. Lymph nodes: There is no evidence of lymphadenopathy. Liver: The liver parenchyma demonstrates diffusely decreased attenuation, suggesting fatty infiltration. Within the anterior aspect of the medial segment of the left hepatic lobe, there is a 1.4 x 1.9 x 2.6 cm hyperdense liver lesion, as seen on image 134, series 10 and sagittal image 43, series 16, which may represent focal fatty sparing. Bones/joints: On the most inferior image of the scan, there is focal calcification around the right 12th rib which is only partially imaged, but could indicate a healing fracture in this region. There is an old healed left posterior 11th rib fracture. There is multilevel mild degenerative change of the lower thoracic spine. Soft tissues: Unremarkable. IMPRESSION: 1. No pulmonary embolism identified. 2. No active cardiopulmonary disease identified. 3. Hepatic steatosis. 4. Focal hyperdense left hepatic lobe lesion, as described above, may represent focal fatty sparing, but liver neoplasm, either primary or metastatic, cannot be entirely excluded. Further evaluation with liver directed CT or MRI could be obtained on a nonemergent basis. 5. Findings suggest mild circumferential wall thickening of the lower esophagus, could reflect reflux esophagitis. Recommend clinical correlation. 6. Can not exclude healing right posterior 12th rib fracture, which is not completely imaged on this exam. Recommend clinical correlation for focal tenderness. Dictated and Authenticated by: Jean Graves MD. Orderin Terrance Burden MD
[2025-10-21 20:43] VITALS: BP 127/74; PULSE 84; PULSE 85; RESP 19; TEMP 36.3; O2SAT 96
== END 2025-10-21 20:38 | disposition home or self-care (01) ==
PROVIDERS: Emergency Provider Registered Nurse Emergency; PCP Family Medicine
DX: J06.9 Acute upper respiratory infection, unspecified (principal); K76.0 Fatty (change of) liver, not elsewhere classified; Z72.0 Tobacco use; R07.9 Chest pain, unspecified; R11.0 Nausea
CPT/HCPCS: 99284; 99285; 36415; 71275; 80053; 87637; 93005; 71046; 84484; 85025; 85379; 93010; J3490